=== PATIENT | male | born 1930 | race Caucasian/White ===

== ENCOUNTER 2016-06-24 13:09 | Emergency (ER) | payer OTHER, MEDICAID ==
[2016-06-24 13:15] VITALS: RESP 18
[2016-06-24] MEDS ORDERED: OXYCODONE/APAP 5/325 TAB PO ONE (14:40)
--- NOTE | 2016-06-24 14:40 | EDPHY ---
H & P Time Seen by Provider: 06/24/16 13:26 HPI/ROS: CHIEF COMPLAINT: Left knee pain HISTORY OF PRESENT ILLNESS: 85-year-old male in the emergency department via private vehicle with a friend. He has a history of chronic left knee pain for which he is being followed by Dr. Daniel Kaufman. On 06/17/2016 he sustained a mechanical fall and impacted his left knee. He had no complaints of immediate pain and was able to ambulate, go to brunch and walk the dog but notes that in the past approximately 24 hours soft tissue swelling and increased pain left knee. No instability. He has an appoint with primary care provider tomorrow an appointment with Dr. Daniel Kaufman on July 01. He lives in the [facility] and states that he does feel comfortable with his current living situation and does feel safe. PRIMARY CARE PROVIDER:Ashutosh REVIEW OF SYSTEMS: A ten point review of systems was performed and is negative with the exception of the items mentioned in the HPI PHYSICAL EXAM (Prior to examination, patient consented to physical exam, hands were washed and my usual and customary physical exam procedures followed) 1) GENERAL: Well-developed, well-nourished, alert and oriented. Appears to be in no acute distress. 2) HEAD: Normocephalic 3) HEENT: Pupils equal, round, reactive to light bilaterally. 4) LUNGS: Breathing comfortably. 5) MUSCULOSKELETAL: Exam of the left knee shows knee effusion. Normal color normal temperature. Tender to palpation. . Compartments are soft. 6) SKIN: intact 7) VASCULAR: DP,PT pulses and cap refill present and brisk distally DIFFERENTIAL DIAGNOSIS: in no particular order including but not limited to fracture, sprain, compartment syndrome, septic arthritis, DVT Xray of the left knee interpreted by myself: no definitive acute osseous abnormality MEDICAL DECISION MAKING Serial evaluations performed on patient. I discussed the limitations of x-ray in diagnosis of knee pain and injury. At this time I do not think that emergent MRI is currently indicated. However, I have recommended follow-up with Orthopedic surgery and provided this referral information. Informed the patient that outpatient MRI may be indicated. Doubt septic arthritis. Doubt compartment syndrome. Doubt DVT. Smoking Status: Never smoked Constitutional: Initial Vital Signs Temperature (C) 36.7 C 06/24/16 13:10 Heart Rate 83 06/24/16 13:10 Respiratory Rate 18 06/24/16 13:10 Blood Pressure 119/55 L 06/24/16 13:10 O2 Sat (%) 94 06/24/16 13:10 O2 Delivery Mode Room Air Allergies/Adverse Reactions: tramadol Allergy (Severe, Verified 06/24/16 13:17) altered LOC gentamicin [Gentamicin] Allergy (Intermediate, Verified 06/24/16 13:10) WELTS Home Medications: Medication Instructions Recorded Carbidopa/Levodopa [Carbidopa-Levo 1 each PO 06/24/16 25-100 mg Odt] Citalopram [CeleXA] 20 mg PO 06/24/16 Docusate Sodium [Colace] 100 mg PO BID #6 cap 06/24/16 Sulfamethox/Tmp 400/80 mg 1 each PO BID@1000,2000 06/24/16 [Sulfamethoxazole-Tmp SS] oxyCODONE/APAP 5/325 [Percocet 0.5 tab PO Q6 #10 tab 06/24/16 5/325] MDM/Departure - MDM Diagnostics: Xray of the left knee interpreted by radiologist shows no definitive acute osseous abnormality. Images reviewed by myself ED Course/Re-evaluation: Patient states that he is able tolerate Percocet without adverse effect. Doubt septic arthritis. I do not think that arthrocentesis currently indicated I do not think the benefits outweigh the risks. He has an appointment with his primary care provider tomorrow an appointment with Dr. Daniel Kaufman on July 01. Recommend he keep both these appointments. He is discharged with Percocet and my usual and customary opiate precautions and instructions. - Depart Disposition: Home, Routine, Self-Care Clinical Impression: Acute pain of left knee Condition: Good Instructions: Knee Sprain (ED) Additional Instructions: Return to the ER immediately if you experience discoloration, have worsening pain, numbness, tingling, or any other symptoms that concern you. If you received x-rays in the emergency department today, be advised, that ligamentous , tendon, muscular, and other non-bony injury cannot be fully ruled out. Try to keep your affected extremity elevated above the level of your chest, and keep cold packs on the affected area, for the next 48 hours. Prescriptions: Docusate Sodium [Colace] 100 mg PO BID #6 cap oxyCODONE/APAP 5/325 [Percocet 5/325] 0.5 tab PO Q6 #10 tab Referrals: Stan Boykin MD [Primary Care Provider] - 1 day without fail (Keep your appointment with Dr. Stan Boykin scheduled for tomorrow)
--- NOTE | 2016-06-24 14:51 | DX ---
Left knee, 5 views - June 24, 2016 at 1327 hours Indication: Pain. Comparison: April 28, 2013. Findings: Again present is severe joint space narrowing and chondrocalcinosis, consistent with sever e arthritic changes. There is some soft tissue swelling over the lateral femur. No definite fracture. 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 Critical results relayed by Dr. Coy Bowser to Jonathan Antonio PA-C, on June 24, 2016 at 1448 hours .
[2016-06-24 15:10] VITALS: BP 132/81; PULSE 78; TEMP 98.8; O2SAT 95
== END 2016-06-24 15:10 | disposition home or self-care (01) ==
DX: S89.92XA Unspecified injury of left lower leg, initial encounter (principal); W18.39XA Other fall on same level, initial encounter

== ENCOUNTER 2017-05-03 13:02 | Observation (INO) | payer MEDICAID, OTHER ==
[2017-05-03] MEDS ORDERED: LIDOCAINE 2% JELLY 20 ML (UROJECT) ONE (14:14)
--- NOTE | 2017-05-03 14:40 | EDPHY ---
H & P Smoking Status: Never smoked <Kayy Mejias S - Last Filed: 05/03/17 15:13> <KimberlyDonna M - Last Filed: 05/03/17 18:10> Time Seen by Provider: 05/03/17 14:11 HPI/ROS: CHIEF COMPLAINT: Unable to urinate HISTORY OF PRESENT ILLNESS: The patient is an 86-year-old male with a history of prostatic cancer, prostatectomy, and Parkinson's disease who presents to the emergency department urinary retention. Patient has been unable to urinate since last evening. Last week the patient had urinary retention ultimately had a straight catheter placed on and a large amount of urine was obtained. At that time he was started on Bactrim. He had been on Bactrim previously for 7 years but it had been recently discontinued. Patient states that he has suprapubic pressure. No pain. No nausea or vomiting. No fevers or chills. REVIEW OF SYSTEMS: My complete review of systems is negative except as mentioned in the HPI. ( Kayy Mejias) Past Medical/Surgical History: Includes Parkinson's disease, chronic UTI, prostate cancer, memory loss Past surgical history: Includes orthopedic surgery, prostatectomy Social history: Patient does not smoke or drink. 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 (Kayy Mejias) Physical Exam: 37.0, 141/85, 88, 16, 92% on room air GENERAL: No acute distress, alert. HEENT: Eyes normal to inspection, normal pharynx, no signs of dehydration. NECK: No thyromegaly, no lymphadenopathy, supple. RESPIRATORY: Clear to auscultation bilaterally, no rales, rhonchi or wheezing. CVS: Regular rate and rhythm, no rubs, murmurs, or gallops. ABDOMEN: Soft, nondistended, no organomegaly. Patient has a suprapubic palpable firmness. BACK: Normal to inspection, no CVA tenderness. SKIN: Normal color, no rash, warm, dry. No pallor. EXTREMITIES: No pedal edema, no calf tenderness, no joint swelling. NEURO/PSYCH: Alert and oriented, flat affect. Parkinson's like movement. ( Kayy Mejias) Constitutional: Initial Vital Signs Temperature (C) 37.0 C 05/03/17 13:08 Heart Rate 88 05/03/17 13:08 Respiratory Rate 16 05/03/17 13:08 Blood Pressure 141/85 H 05/03/17 13:08 O2 Sat (%) 92 05/03/17 13:08 O2 Delivery Mode Room Air Allergies/Adverse Reactions: tramadol Allergy (Severe, Verified 06/24/16 13:17) altered LOC gentamicin [Gentamicin] Allergy (Intermediate, Verified 06/24/16 13:10) WELTS ciprofloxacin [From Cipro] Allergy (Verified 05/03/17 13:05) Home Medications: Medication Instructions Recorded Carbidopa/Levodopa [Carbidopa-Levo 1 each PO 06/24/16 25-100 mg Odt] Citalopram [CeleXA] 20 mg PO 06/24/16 Docusate Sodium [Colace] 100 mg PO BID #6 cap 06/24/16 Sulfamethox/Tmp 400/80 mg 1 each PO BID@1000,2000 06/24/16 [Sulfamethoxazole-Tmp SS] Medical Decision Making <Kayy Mejias S - Last Filed: 05/03/17 15:13> - Diagnostics Imaging: Discussed imaging studies w/ weight caller Radiologist, I viewed and interpreted images myself <Donna Harris - Last Filed: 05/03/17 18:10> - Diagnostics Imaging Results: Imaging Impressions Abdomen/Pelvis CT 05/03/17 14:46 Impression: 12 x 6 mm proximal left ureteral calculus. Marked left renal atrophy , and left nephrolithiasis. Cystic change, right kidney. Results called to Dr. Jacobs for Dr. Harris at 3:45 PM. Attention: This CT examination is specifically designed to evaluate patients who are clinically suspected of having acute obstructive uropathy. This examination does not use radiographic contrast, and as such, provides only a limited evaluation of the abdomen, pelvis and retroperitoneum. If there is further clinical suspicion for pathological conditions other than obstructive uropathy, a complete CT evaluation of the abdomen and pelvis utilizing intravenous, oral, and rectal contrast should be considered. Testicular Ultrasound 05/03/17 15:54 Impression: 1. Age-related testicular atrophy, with no mass or torsion. 2. Partially-septated hydrocele noted along the lower portion of the left scrotal sac. Findings were discussed with Donna Harris MD at 16:48, on 05/03/2017. ED Course/Re-evaluation: In the emergency department I discussed possible etiologies with the patient and his medical [id number]. Answered all her questions. Laboratory studies and Stroud catheter was ordered. Procedure: Limited bedside ultrasound Indication: Urinary retention I performed a bedside ultrasound. I difficulty imaging a full bladder. He was not a typical appearance as expected with a significant amount of urine. A Stroud catheter was placed. A small amount of urine was obtained. Due to the abnormal ultrasound and small amount of urine on Stroud placement a CT was ordered. Patient was given fentanyl 25 mcg IV for pain. 1500: Patient is signed out at change of shift to Dr. Donna Harris. The patient is awaiting laboratory studies and CT imaging. (Kayy Mejias) Differential Diagnosis: My differential includes but is not limited to urinary retention, urinary tract infection, pyelonephritis, pelvic mass, bladder mass, malignancy, urethral stricture (Kayy Mejias) Other Provider: I assumed care of this patient at shift change. His caregiver describes the patient having a sudden increase in pain this morning. She also notes the patient has a history of kidney stones. He admits to having pain in the groin, penis, and testicles. On my exam, he has right testicular tenderness. 1545: Procedure: Limited bedside ultrasound Indication: Urinary retention I performed a bedside ultrasound after the stroud catheter was placed. I do not see a distended bladder. I had difficulty visualizing bladder. 1550: Abdominopelvic CT shows a 12 x 6 mm proximal left ureteral calculus with left renal atrophy, and left nephrolithiasis. 1550: Right testicular US has been ordered. 1650: Spoke with radiologist, he reports the testicular US shows no reason for the patients pain 1710: Reassessed patient, he is no longer in pain. However, he does note that he is still having some aches. I have discussed the laboratory results, specifically a positive urinary tract infection. I believe he should be placed on Keflex, not Bactrim for this UTI. I have also discussed the possibility of a hospital admission. At this time he would feel more comfortable with a hospital admission instead of being discharged. 1725: Consulted with Dr. Vasquez, his PCP, and discussed his current symptoms as well as his laboratory and imaging findings. 1742: Consulted with Dr. Dennis, urologist, regarding the patients symptoms and findings today. He does not believe the patient needs to be admitted. 1748: Reassessed patient and discussed my conversations with Dr. Vasquez and Dr. Dennis. He is comfortable with being discharged home. Return precautions provided. (Donna Harris) - Data Points Laboratory Results: Laboratory Results 05/03/17 15:05 05/03/17 15:05 05/03/17 05/03/17 05/03/17 15:05 15:05 15:05 WBC 7.01 10^3/uL 10^3/uL (3.80-9.50) RBC 3.73 10^6/uL L 10^6/uL (4.40-6.38) Hgb 11.4 g/dL L g/dL (13.7-17.5) Hct 33.4 % L % (40.0-51.0) MCV 89.5 fL fL (81.5-99.8) MCH 30.6 pg pg (27.9-34.1) MCHC 34.1 g/dL g/dL (32.4-36.7) RDW 13.0 % % (11.5-15.2) Plt Count 190 10^3/uL 10^3/uL (150-400) MPV 10.1 fL fL (8.7-11.7) Neut % (Auto) 76.1 % H % (39.3-74.2) Lymph % (Auto) 13.6 % L % (15.0-45.0) [place] % (Auto) 8.6 % % (4.5-13.0) Eos % (Auto) 1.0 % % (0.6-7.6) Baso % (Auto) 0.4 % % (0.3-1.7) Nucleat RBC Rel Count 0.0 % % (0.0-0.2) Absolute Neuts (auto) 5.34 10^3/uL 10^3/uL (1.70-6.50) Absolute Lymphs (auto) 0.95 10^3/uL L 10^3/uL (1.00-3.00) Absolute Monos (auto) 0.60 10^3/uL 10^3/uL (0.30-0.80) Absolute Eos (auto) 0.07 10^3/uL 10^3/uL (0.03-0.40) Absolute Basos (auto) 0.03 10^3/uL 10^3/uL (0.02-0.10) Absolute Nucleated RBC 0.00 10^3/uL 10^3/uL (0-0.01) Immature Gran % 0.3 % % (0.0-1.1) Immature Gran # 0.02 10^3/uL 10^3/uL (0.00-0.10) Sodium 136 mEq/L mEq/L (134-144) Potassium 4.1 mEq/L mEq/L (3.5-5.2) Chloride 104 mEq/L mEq/L (97-110) Carbon Dioxide 21 mEq/l L mEq/l (22-31) Anion Gap 11 mEq/L mEq/L (8-16) BUN 24 mg/dL H mg/dL (7-23) Creatinine 1.3 mg/dL mg/dL (0.7-1.3) Estimated GFR 52 Glucose 83 mg/dL mg/dL (70-100) Calcium 8.7 mg/dL mg/dL (8.5-10.4) Urine Color YELLOW Urine Appearance MODERATELY TURBID Urine pH 5.0 (5.0-7.5) Ur Specific [place] 1.026 (1.002-1.030) Urine Protein 2+ H (NEGATIVE) Urine Ketones TRACE H (NEGATIVE) Urine Blood NEGATIVE (NEGATIVE) Urine Nitrate NEGATIVE (NEGATIVE) Urine Bilirubin NEGATIVE (NEGATIVE) Urine Urobilinogen NEGATIVE EU EU (0.2-1.0) Ur Leukocyte Esterase 3+ H (NEGATIVE) Urine RBC 25-50 /hpf H /hpf (0-3) Urine WBC 50-182 /hpf H /hpf (0-3) Ur Epithelial Cells TRACE /lpf /lpf (NONE-1+) Amorphous Sediment PRESENT /hpf /hpf (NONE-1+) Urine Bacteria 1+ /hpf H /hpf (NONE SEEN) Urine Mucus 2+ /lpf H /lpf (NONE-1+) Urine Glucose NEGATIVE (NEGATIVE) Medications Given: Discontinued Medications Fentanyl (Sublimaze) 25 mcg IVP EDNOW ONE Stop: 05/03/17 15:14 Last Admin: 05/03/17 15:16 Dose: 25 mcg Fentanyl (Sublimaze) 25 mcg IVP EDNOW ONE Stop: 05/03/17 15:14 Last Admin: 05/03/17 15:17 Dose: Not Given Departure <Kayy Mejias - Last Filed: 05/03/17 15:13> <Donna Harris - Last Filed: 05/03/17 18:10> - Departure Disposition: Home, Routine, Self-Care Clinical Impression: Urinary retention, Pelvic pain in male Groin pain Qualifiers: Laterality: right Qualified Code(s): R10.31 - Right lower quadrant pain Urinary tract infection Qualifiers: Urinary tract infection type: site unspecified Hematuria presence: without hematuria Qualified Code(s): N39.0 - Urinary tract infection, site not specified Condition: Good Instructions: Epididymitis (ED), Urinary Tract Infection in Men (ED), Testicle Pain (ED), Groin Pain (ED) Additional Instructions: Take Keflex as instructed for your UTI; 500mg by mouth 3 times a day. Follow up with Dr. Vogel tomorrow. Please keep the Stroud in place. We will ask you to monitor how much urine you have put out. Drink plenty of fluid. Okay to take Tylenol 650-1000 mg every 4-6 hours as needed for pain. Return to the Emergency Department for fever, worsening pain, flank pain, vomiting, or other concerns. Referrals: SHAYE VASQUEZ [Other] - As per Instructions Report Scribed for: Donna Harris Report Scribed by: Joleen Sepulveda Date of Report: 05/03/17 Time of Report: 15:53 <Donna Harris - Last Filed: 05/03/17 18:10>
[2017-05-03] MEDS ORDERED: fentaNYL 100 MCG/2 ML INJ IVP ONE ×2 (15:13)
[2017-05-03 15:14] LABS: % IMMATURE GRANULYOCYTES 0.3 % (0.0-1.1); ABSOLUTE IMMATURE GRANULOCYTES 0.02 10^3/uL (0.00-0.10); ADD DIFF? NO; ADD MORPH? NO; ADD SCAN? NO; ATYPICAL LYMPHOCYTE FLAG 20 (0-99); FRAGMENT RBC FLAG 0 (0-99); HEMATOCRIT 33.4 % (40.0-51.0); HEMOGLOBIN 11.4 g/dL (13.7-17.5); LEFT SHIFT FLG 0 (0-99); LIPEMIA HEMOLYSIS FLAG 90 (0-99); MEAN CELL HEMOGLOBIN 30.6 pg (27.9-34.1); MEAN CELL HEMOGLOBIN CONCENTR. 34.1 g/dL (32.4-36.7); MEAN CELL VOLUME 89.5 fL (81.5-99.8); MEAN PLATELET VOLUME 10.1 fL (8.7-11.7); PLATELET CLUMPS FLAG 30 (0-99); PLATELET COUNT 190 10^3/uL (150-400); RED BLOOD CELL COUNT 3.73 10^6/uL (4.40-6.38)
[2017-05-03 15:16] LABS: COLOR YELLOW; LEUKOCYTE ESTERASE,URINE 3+ (NEGATIVE); NITRITE,URINE NEGATIVE (NEGATIVE)
[2017-05-03 15:21] LABS: AMORPHOUS PRESENT /hpf (NONE-1+); MUCUS 2+ /lpf (NONE-1+); RBC,URINE 25-50 /hpf (0-3); WBC,URINE 50-182 /hpf (0-3)
[2017-05-03 15:31] LABS: BACTERIA 1+ /hpf (NONE SEEN)
[2017-05-03 15:33] LABS: ANION GAP 11 mEq/L (8-16); CALCIUM 8.7 mg/dL (8.5-10.4); CARBON DIOXIDE 21 mEq/l (22-31); CHLORIDE 104 mEq/L (97-110); CREATININE 1.3 mg/dL (0.7-1.3); GLOMERULAR FILTRATION RATE 52; GLUCOSE 83 mg/dL (70-100); POTASSIUM 4.1 mEq/L (3.5-5.2); SODIUM 136 mEq/L (134-144)
[2017-05-03] MEDS ORDERED: CEPHALEXIN 500 MG CAP PO ONE (17:56)
[2017-05-03] MEDS ORDERED: HYDROCOD/APAP 5/325 PREPACK#6 BTL TAKEHOME ONE (18:09)
[2017-05-03] MEDS ORDERED: CEPHALEXIN 500MG PREPACK#4 BTL TAKEHOME ONE ×2 (18:09→18:23)
[2017-05-03] MEDS ORDERED: HYDROCODONE/APAP 5/325 TAB PO ONE (18:21)
[2017-05-03] MEDS ORDERED: PHENAZOPYRIDINE HCL 200 MG TAB PO ONE (18:53)
[2017-05-03] MEDS ORDERED: ACETAMINOPHEN 325 MG TAB PO PRN (20:36)
[2017-05-03] MEDS ORDERED: HYDROmorphone HCL/NS/PF 0.4 MG/2 ML SYR IVP PRN (20:36)
[2017-05-03] MEDS ORDERED: ONDANSETRON DISINTEGRATING 4 MG TAB PO PRN (20:36)
[2017-05-03] MEDS ORDERED: ONDANSETRON 4 MG/2 ML VIAL IVP PRN (20:36)
[2017-05-03] MEDS ORDERED: PROMETHAZINE HCL 25 MG/ML INJ IVP PRN (20:36)
[2017-05-03] MEDS ORDERED: ZOLPIDEM TARTRATE 5 MG TAB PO PRN (20:39)
[2017-05-03] MEDS ORDERED: BISACODYL 5 MG EC TAB PO SCH (20:45)
[2017-05-03] MEDS ORDERED: ASPIRIN EC 325 MG TAB PO SCH (21:00)
[2017-05-03] MEDS: NS 1,000 ML IV SCH (21:10)
[2017-05-03] MEDS: oxyCODONE IR 5 MG TAB PO PRN (21:46)
[2017-05-03] MEDS: TAMSULOSIN HCL 0.4 MG CAP PO SCH (21:46)
--- NOTE | 2017-05-03 21:58 | GHP ---
[f rep st] HISTORY AND PHYSICAL DATE OF ADMISSION: 05/03/2017 CHIEF COMPLAINT: Abdominal pain. HISTORY: This is an 86-year-old man with a past medical history that includes Parkinson's, prostate cancer, and recurrent UTIs who presents with several days of lower abdominal and groin pain with associated spasm as well as intermittent urinary retention over the last week. The patient did require straight catheterization at his home care facility x1 this week. He otherwise notes that it does not seem as if he is making sufficient urine for the last several days. His caregiver believes that he has only made 100 mL of urine for the last 2 days despite drinking a normal amount of water. He has noted that his urine is somewhat darker than usual. He has not had fevers or chills that he is aware of. He does note bouts of quite severe pain that radiates into his groin coming and going and up to a 9/10 in severity when the spasm occurs. PAST MEDICAL HISTORY: 1. Prostate cancer. 2. Recurrent UTIs with a history of ESBL. 3. Parkinson disease. 4. Kidney and bladder stones. 5. Memory loss. PAST SURGICAL HISTORY: 1. Lithotripsy. 2. Left shoulder surgery. 3. Prostatectomy. 4. Multiple knee surgeries. 5. Left hip surgery and total hip arthroplasty. FAMILY HISTORY: Unknown as patient is adopted. SOCIAL HISTORY: The patient is . 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 He states he is quite active. He is usually still doing a lot of gardening. He is a never smoker. Uses alcohol occasionally. REVIEW OF SYSTEMS: 10-point review of systems obtained, negative except as per HPI. HOME MEDICATIONS: 1. Bisacodyl. 2. Sertraline. 3. Sinemet. 4. Aspirin. ALLERGIES: Multiple and include ciprofloxacin, gabapentin, and tramadol. PHYSICAL EXAMINATION: VITAL SIGNS: BP 126/78, heart rate 76, respiratory rate 20, O2 sats 92% on room air. Temperature is 36.5. GENERAL APPEARANCE: This is a chronically ill-appearing man. He is in moderate distress. He is diaphoretic. EYES: Anicteric. HENT: Oropharynx clear. Mucous membranes are dry. CARDIOVASCULAR: Regular rate and rhythm, no MRG, no edema. PULMONARY: CTA bilaterally to anterior exam. ABDOMEN: Soft. Bowel sounds are present. No rebound or guarding. EXTREMITIES: No clubbing, cyanosis, or edema. SKIN: Warm, dry, well perfused. NEURO/PSYCH: Oriented and appropriate. Patient does have a coarse tremor present. CLINICAL DATA: Labs reviewed. White blood cell count is 7.0, hematocrit 33.4, platelets of 190. Chemistry is remarkable for a BUN of 24 and a creatinine of 1.3. Urinalysis shows 25-50 red blood cells, 50-180 white blood cells, 3+ leukocyte esterase. Imaging personally reviewed and interpreted. Abdominal CT showing a 12 x 6 mm proximal left ureteral stone as well as some left nephrolithiasis that are non obstructing. There is marked atrophy of the left kidney with significant parenchymal loss. Testicular ultrasound shows age-related testicular atrophy and a partially septated hydrocele. ASSESSMENT AND PLAN: This is an 86-year-old man with a past medical history of prostate cancer, Parkinson disease, and recurrent urinary tract infections, presenting with ureterolithiasis and abdominal pain. 1. Ureterolithiasis. Fairly large proximal left ureteral stone. He is having fairly significant symptoms. Seems as if his care plan has been somewhat questionable as patient is enrolled in [facility] and per his primary care physician, plan would be for only overnight observation and then to have him follow up with Urology as an outpatient as soon as possible if this can be arranged. They were hoping not to have him admitted at all initially. Will hold off on a urology consult for the time being, though if pain is not improved , he will require this tomorrow. Will start ceftriaxone for associated pyuria. Dr. Dennis was aware the patient was here, but did feel that he could be discharged to outpatient followup. Flomax was initiated as well. 2. Urinary retention. Thomas catheter now in place. The patient has had only somewhat limited urinary output. We will continue to monitor I's and O's. We will provide intravenous fluids overnight. 3. Groin pain and spasm in the setting of ureteral stone and likely related to the same. Provide IV and p.o. opiates as needed. He has been given Pyridium x1 without any real benefit. 4. Parkinson's. This has been relatively stable. Will continue his home regimen. 5. History of prostate cancer. Will continue his outpatient regimen. 6. Disposition: Observation status. Suspect patient will need less than 48 hours stay for evaluation and management of above. 7. DNR--comfort care only 8. The patient is new to my care. Care plan reviewed with emergency room physician and patient's PCP including plans for overnight observation. Further history obtained from patient's caregiver present at bedside. /[id number]/MODL MTDD
[2017-05-03] MEDS: CARBIDOPA/LEVODOPA 25 MG/100 MG TAB PO SCH (21:59)
[2017-05-04] MEDS: oxyCODONE IR 5 MG TAB PO PRN (00:19)
[2017-05-04 05:56] LABS: % IMMATURE GRANULYOCYTES 0.3 % (0.0-1.1); ABSOLUTE IMMATURE GRANULOCYTES 0.02 10^3/uL (0.00-0.10); ADD DIFF? NO; ADD MORPH? NO; ADD SCAN? NO; ATYPICAL LYMPHOCYTE FLAG 10 (0-99); FRAGMENT RBC FLAG 0 (0-99); HEMATOCRIT 33.7 % (40.0-51.0); LEFT SHIFT FLG 0 (0-99); LIPEMIA HEMOLYSIS FLAG 80 (0-99); MEAN CELL HEMOGLOBIN 29.9 pg (27.9-34.1); MEAN CELL HEMOGLOBIN CONCENTR. 32.6 g/dL (32.4-36.7); MEAN CELL VOLUME 91.6 fL (81.5-99.8); MEAN PLATELET VOLUME 10.4 fL (8.7-11.7); PLATELET CLUMPS FLAG 0 (0-99); PLATELET COUNT 182 10^3/uL (150-400); RED BLOOD CELL COUNT 3.68 10^6/uL (4.40-6.38); RED CELL DISTRIBUTION WIDTH 12.9 % (11.5-15.2)
[2017-05-04 06:10] LABS: ANION GAP 10 mEq/L (8-16); CALCIUM 8.4 mg/dL (8.5-10.4); CARBON DIOXIDE 22 mEq/l (22-31); CHLORIDE 106 mEq/L (97-110); CREATININE 1.1 mg/dL (0.7-1.3); GLOMERULAR FILTRATION RATE > 60; GLUCOSE 83 mg/dL (70-100); POTASSIUM 4.6 mEq/L (3.5-5.2); SODIUM 138 mEq/L (134-144)
[2017-05-04 07:59] VITALS: O2SAT 95
[2017-05-04] MEDS: NS 1,000 ML IV SCH (08:06)
[2017-05-04] MEDS: PHENAZOPYRIDINE HCL 200 MG TAB PO SCH ×2 (08:16→13:24)
[2017-05-04] MEDS: TAMSULOSIN HCL 0.4 MG CAP PO SCH (08:17)
[2017-05-04] MEDS: CARBIDOPA/LEVODOPA 25 MG/100 MG TAB PO SCH (08:18)
--- NOTE | 2017-05-04 08:41 | HOSPPROG ---
Hospitalist Progress Note Assessment/Plan: Patient is an 86-year-old male with a history of Parkinson's, prostate cancer and recurrent UTIs. He presented to the emergency room with abdominal pain. A CT scan showed a 12 x 6 mm proximal left ureteral stone as well as some left nephrolithiasis that are nonobstructing today is my 1st encounter with the patient. Chart reviewed. * ureteral stone/large one on left side pain is on the right side reviewed his care with Dr Dennis/stone has been there for a long time patient sees Dr Flowers in the OP setting Dr Dennis will see if Dr Flowers can come by to see * urinary retention stroud placed in will remove and see if he can void *UTI started on Ceftriaxone spoke with Dr Luli Miner/ she called a script of Bactrim into [facility] * groin pain no complaints * Parkinson's doing well w home meds * history of prostate cancer further f/u with Dr Flowers *Plan: after he voids, dc home/ further f/u w urology and PCP Subjective: Nils has no complaints, feeling well, is hungry. Objective: Vital Signs Temp Pulse Resp BP Pulse Ox 36.8 C 69 16 126/71 H 95 05/04/17 07:58 05/04/17 07:58 05/04/17 07:58 05/04/17 07:58 05/04/17 07:58 Laboratory Results 05/04/17 05:23 05/04/17 05:23 05/03/17 05/04/17 05/05/17 05:59 05:59 05:59 Intake Total 300 950 Output Total 700 Balance -400 950 - Physical Exam Constitutional: no apparent distress, not in pain, chronically ill appearing Eyes: PERRL Ears, Nose, Mouth, Throat: hearing normal Cardiovascular: regular rate and rhythym Respiratory: no respiratory distress Gastrointestinal: normoactive bowel sounds Genitourinary: stroud in urethra Skin: warm Musculoskeletal: generalized weakness Neurologic: AAOx3 Psychiatric: interacting appropriately ICD10 Worksheet Patient Problems: Problems Problem Status Onset Groin pain Acute Pelvic pain in male Acute Urinary retention Acute Urinary tract infection Acute Sepsis - Septicemia Acute Syncope Acute Thrombocytopenic disorder Acute UTI (lower urinary tract infection) Acute
[2017-05-04] MEDS ORDERED: ENOXAPARIN 40 MG/0.4 ML SYR SC SCH (09:00)
[2017-05-04] MEDS ORDERED: SERTRALINE HCL 25 MG TAB PO SCH (09:00)
[2017-05-04 11:48] VITALS: BP 113/58; PULSE 85; RESP 17; TEMP 97.5
--- NOTE | 2017-05-04 14:36 | ASMTCASEMG ---
Case Management Evaluation Functional: Able to Answers: Yes return Home with Prior Level of Function/Care Discharge Plan Comments Coordination Status Comments Notes: Patient discharging home once it has been determined that he can void when the catheter is removed. C/M will follow. Date Signed: 05/04/2017 02:35 PM Electronically Signed By:BROCK Mills
--- NOTE | 2017-05-04 15:33 | ASMTCMCOM ---
CM Note CM Note Notes: Pt discharging home with no apparent case management needs. Date Signed: 05/04/2017 03:32 PM Electronically Signed By:BROCK Mills
--- NOTE | 2017-05-05 01:23 | GCON ---
[f rep st] CONSULTATION DATE OF CONSULTATION: 05/04/2017 CHIEF COMPLAINT: Pelvic pain. HISTORY OF PRESENT ILLNESS: This is an 86-year-old gentleman who years ago was known to me because o f his prostate cancer. He had had radiation, brachytherapy, and surgery, and had had biochemical rec urrence. I have not seen him since 06/24/2010. Since he has seen Dr. Monsivais, Dr. Emanuel, and other d octors he does not remember the name of. He says he has been on Lupron and his PSAs have been quite low and it sounds as though he is admitted because of pelvic pain which he has had for years and he h as also developed Parkinson's and has short-term memory loss. He has had alleged recurrent UTIs, but I do not have a documented history of UTIs noted. In 09/2013, he had 3 colony types of bacteria in the urine and they did not identify the samples. Then, he had 3 colony types on 04/2017, acinetobacter, enterococcus. He had a Klebsiella UTI in 2012 and Enterococcus faecalis urine infecti on in August 2009. His PSA as of 04/09/2017, was less than 0.64. The prior PSA was done on 7, and that was less than 0.06. I do not have any other genitourinary labs on him other than those m entioned. He is not a great historian, but he says that he has had some awful pain in the lower pelv is. I tried to catheterize him on a couple of occasions and he could not tolerate it because of the pain. He has had significant outlet issues and bladder problems for years. He has been totally inco ntinent and wearing pads for at least 3 years. A CAT scan was performed and I reviewed. The CAT sca n showed a left proximal ureteral calculus and somewhat of an atrophic kidney and right kidney had a renal cyst and maybe a bit of dilated ureter. The bladder was not distended but could not visualize well because of the hip prosthesis that he has had placed. At the present time, the patient has no d esire to have any genitourinary care above and beyond what he has had because he feels so good and hi s PSA is low and he feels he is in prostatic cancer remission. The stone is asymptomatic and he is a n 86-year-old gentleman who has some memory loss, Parkinson's, significant cardiovascular disease wit h coronary artery calcifications on CAT scan. An asymptomatic option would be to treat the stone wit h ureteroscopy, lithotripsy, or percutaneous nephrostolithotomy and I think in light of his age and o verall general health and being asymptomatic, it may be best to leave it alone. The urinary retentio n, he is not in retention. He has total urinary incontinence and he desires not having a catheter pu t in and he desires no further genitourinary assessment or evaluation. The UTI, he was started on an tibiotics. Question, he has chronic bacteriuria to some element and probably would not treat him at the present time. The Parkinson's is doing well and we have asked that he have followup with me as a n outpatient if he desires care by me or to follow up with Dr. Emanuel, or a urologist of his choice. PHYSICAL EXAMINATION: VITAL SIGNS: Blood pressure is 113/58, heart rate is 85, respirations 17, O2 saturation on room air is 95%. GENERAL: He is up in a chair, eating well, pain-free. NECK: Supple. CHEST: Unlabored breathing. ABDOMEN: Soft with no rebound, guarding, or organomegaly. LOWER EXT REMITIES: Without significant edema. LABORATORY DATA: I reviewed his laboratory values and he has a creatinine of 1.1 and a serum calcium of 8.4. His CBC shows a white blood count of 6.73. He is a bit anemic with a hematocrit of 33.7, a nd platelet count of 182,000. Urinalysis showed white blood cells, red blood cells, and it was nitri te negative. IMPRESSION: At the present time, prostate cancer is stable should continue his androgen blockade the rapy. His CT scan reveals the findings as noted above with him being asymptomatic, I would probably recommend no intervention because of the potential risks associated with general anesthesia and attem pted treatment of a patient who has some short-term memory loss, Parkinson's, and significant vascula r disease. His urine looks like it does not have bacteriuria and it may be reasonable to withhold tr eatment until he becomes somewhat symptomatic. Attempted catheterization, because of his pain, disco mfort, prior history of significant stricture disease and prior radiation and having a bladder that i s really not very functional, would leave the catheter out unless he has concerns later on. I have l eft a message with Elaina Reyes's office for the hospitalists to call me back and discuss this pat ient with her, and she will most likely follow up after she gets the message from the phone service. There was a total of 45 minutes spent in discussing, examining the patient, reviewing images and laurent t work. /[id number]/MODL
--- NOTE | 2017-05-05 02:34 | GDS ---
[f rep st] DISCHARGE SUMMARY DISCHARGE DIAGNOSES: 1. Ureteral stone on left side. 2. Urinary retention. 3. Urinary tract infection. 4. Groin pain. 5. Parkinson. 6. Prostate cancer. HISTORY: Briefly, the patient is an 86-year-old gentleman with a history of Parkinson disease, prost ate cancer, recurrent UTIs. He presented to the emergency with abdominal pain. A CT scan showed a 1 2 x 6 mm proximal left ureteral stone, as well as some left nephrolithiasis that are nonobstructing. He was seen in the ER and admitted for further evaluation. HOSPITAL COURSE: 1. Ureteral stone. This was a large one noted on the left side. His pain is actually on the right side. I reviewed his care with Dr. Dennis who thought the stone had been there for a period of time . Dr. Flowers came by to see the patient. The patient will follow up with Dr. Flowers in the outpatient setting. 2. Urinary retention. The Thomas was removed. He is eating and drinking and voiding without difficu lty. 3. Urinary tract infection. He was started on ceftriaxone. Dr. Luli Vogel called in a prescript ion of Bactrim for him. 4. Groin pain. No complaints. 5. Parkinson. Resumed his home medications. 6. History of prostate cancer. Further follow up with Dr. Flowers. DISCHARGE CONDITION: Stable. Blood pressure is 113/58, heart rate is 85, respiratory rate is 18, O2 sats on room air 95%, temperature is 36.4 Celsius. MEDICATIONS AT DISCHARGE: 1. Please see the EMR. Multiple medications were called in to [facility] by his primary care provid er. DISCHARGE INSTRUCTIONS: 1. To further follow up with Dr. Vogel tomorrow at the [facility]. 2. To continue his antibiotics as prescribed. 3. Pain medications p.r.n. have been ordered. Please note that his urine culture is currently pending. /[id number]/MODL
== END 2017-05-04 15:38 | disposition home or self-care (01) ==
LOC: F1N 20:23
PROVIDERS: ADMIT Internal Medicine; ATTEND Internal Medicine
DX: N20.2 Calculus of kidney with calculus of ureter (principal); R33.9 Retention of urine, unspecified; N39.0 Urinary tract infection, site not specified; G20 Parkinson's disease; C61 Malignant neoplasm of prostate
CPT/HCPCS: 74176; 76870; G0378; 96374; J0696; J1170; J1650; J2550; J3010

== ENCOUNTER 2017-05-29 16:39 | Emergency (ER) | payer OTHER ==
[2017-05-29 17:15] LABS: % IMMATURE GRANULYOCYTES 0.3 % (0.0-1.1); ABSOLUTE IMMATURE GRANULOCYTES 0.02 10^3/uL (0.00-0.10); ADD DIFF? NO; ADD MORPH? NO; ADD SCAN? NO; ATYPICAL LYMPHOCYTE FLAG 10 (0-99); FRAGMENT RBC FLAG 0 (0-99); HEMATOCRIT 35.1 % (40.0-51.0); HEMOGLOBIN 11.6 g/dL (13.7-17.5); LEFT SHIFT FLG 0 (0-99); LIPEMIA HEMOLYSIS FLAG 80 (0-99); MEAN CELL HEMOGLOBIN 30.7 pg (27.9-34.1); MEAN CELL VOLUME 92.9 fL (81.5-99.8); MEAN PLATELET VOLUME 10.8 fL (8.7-11.7); PLATELET CLUMPS FLAG 10 (0-99); PLATELET COUNT 162 10^3/uL (150-400); RED BLOOD CELL COUNT 3.78 10^6/uL (4.40-6.38); RED CELL DISTRIBUTION WIDTH 14.4 % (11.5-15.2)
[2017-05-29 17:22] LABS: ANION GAP 11 mEq/L (8-16); CARBON DIOXIDE 25 mEq/l (22-31); CHLORIDE 105 mEq/L (97-110); CREATININE 1.1 mg/dL (0.7-1.3); GLOMERULAR FILTRATION RATE > 60; GLUCOSE 76 mg/dL (70-100); POTASSIUM 4.4 mEq/L (3.5-5.2); SODIUM 141 mEq/L (134-144)
--- NOTE | 2017-05-29 17:33 | EDPHY ---
H & P Time Seen by Provider: 05/29/17 17:03 HPI/ROS: CHIEF COMPLAINT: Right-sided chest pain HISTORY OF PRESENT ILLNESS: This patient is an 86 y/o male with history of Parkinson's disease and prostate cancer arriving via EMS complaining of right-sided chest pain onset early this morning. The pain is "like a hot iron" and spasms under his ribs on the right. At onset, the discomfort felt like a pulled muscle. While riding in the car later in the day, his pain became severe and he called EMS. The pain has not relieved, and is most intense when he tries to breathe. It does not radiate. He is not feeling short of breath. No recent illness, cough, fever. He had not taken any pain medications. No history of heart problems or lung problems. No pneumonia or history of clotting disorder. REVIEW OF SYSTEMS: A 10 point review of systems was performed and is negative with the exception of the elements mentioned in the history of present illness. Past Medical/Surgical History: 1. Parkinson's disease 2. Chronic UTIs 3. Prostate cancer s/p prostatectomy 4. Short term memory loss 5. Essential tremor 6. Chronic left knee pain 7. Left hip fracture repair 8. Essential tremor Past medical records reviewed including recent admission for kidney stone . Social History: Nonsmoker. Lives in [place]. Smoking Status: Never smoked Physical Exam: General Appearance: Alert, in pain with changes in position. Eyes: Pupils equal and round, no conjunctival pallor or injection ENT, Mouth: Mucous membranes moist Neck: Normal inspection Respiratory: Tenderness over right lateral chest wall and axillary line. Rales at bases bilaterally. Cardiovascular: Regular rate and rhythm Gastrointestinal: Abdomen is soft and non- tender Neurological: A&O, nonfocal, normal gait Skin: Warm and dry, no rash Extremities: Nontender, no pedal edema Psychiatric: Mood and affect normal Constitutional: Initial Vital Signs Temperature (C) 36.6 C 05/29/17 16:30 Heart Rate 87 05/29/17 16:30 Respiratory Rate 18 05/29/17 16:30 Blood Pressure 155/90 H 05/29/17 16:30 O2 Sat (%) 92 05/29/17 16:30 O2 Delivery Mode Room Air Allergies/Adverse Reactions: tramadol Allergy (Severe, Verified 06/24/16 13:17) altered LOC gentamicin [Gentamicin] Allergy (Intermediate, Verified 06/24/16 13:10) WELTS ciprofloxacin [From Cipro] Allergy (Verified 05/03/17 13:05) gabapentin Allergy (Verified 05/03/17 19:17) benzodiazipines Allergy (Uncoded 05/03/17 19:17) Home Medications: Medication Instructions Recorded ASPIRIN [ECOTRIN] 500 mg PO HS 05/03/17 Bisacodyl [Bisacodyl (*)] 5 mg PO Q48H 05/03/17 Carbidopa/Levodopa 25/100Mg 3 tab PO TID 05/03/17 [Sinemet 25/100 MG (*)] Sertraline HCl [Zoloft 25mg (*)] 25 mg PO DAILY 05/03/17 Medical Decision Making - Diagnostics EKG Interpretation: EKG interpreted by me reveals normal sinus rhythm, rate 65, no ST/T changes. Interpretation: normal EKG Imaging Results: Imaging Impressions Chest X-Ray 05/29/17 17:04 Impression: Negative chest. Chest/Thorax CTA 05/29/17 17:34 Impression: 1. No visible pulmonary embolus 2. Three-vessel coronary artery atherosclerosis. 3. Mildly prominent mediastinal lymph nodes, which could be reactive, but are nonspecific. Recommend follow-up CT in 3-6 months. 4. Mild interlobular septal thickening, which could be related to early interstitial lung disease. 5. Coronary artery atherosclerosis. 6. Additional findings as above. Findings discussed with Dr. Hannah Jauregui on 05/29/2017 at 18:48. Imaging: Discussed imaging studies w/ scalloper Radiologist ED Course/Re-evaluation: 86 y/o male with history of Parkinson's presents with right-sided chest pain onset this morning. Exam reveals tenderness over right lateral chest wall and axillary line. Rales present at lung bases bilaterally. He was recently admitted 05/03/17 for kidney stone. IV established. Plan for labs including CBC , chemistries, BNP, Troponin. Plan for CT chest given recent admission and severe right-sided chest pain. EKG reveals no evidence of ischemia or dysrhythmia. 18:[address] Waters, radiologist. CT negative for acute processes. 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 The patient is quite hungry and would like to be discharged so he can have dinner. This is in a concern. Tylenol 650 mg orally and Toradol 15 mg IV given prior to discharge. Plan to d/c home in good condition. Follow up and return precautions discussed. He is comfortable with this plan. Differential Diagnosis: Differential diagnosis includes though it is not limited to pneumonia, pneumothorax, pulmonary embolism, aortic dissection, pericarditis, acute coronary syndrome. - Data Points Laboratory Results: Laboratory Results 05/29/17 16:47 05/29/17 16:47 05/29/17 05/29/17 16:47 16:47 WBC 6.76 10^3/uL 10^3/uL (3.80-9.50) RBC 3.78 10^6/uL L 10^6/uL (4.40-6.38) Hgb 11.6 g/dL L g/dL (13.7-17.5) Hct 35.1 % L % (40.0-51.0) MCV 92.9 fL fL (81.5-99.8) MCH 30.7 pg pg (27.9-34.1) MCHC 33.0 g/dL g/dL (32.4-36.7) RDW 14.4 % % (11.5-15.2) Plt Count 162 10^3/uL 10^3/uL (150-400) MPV 10.8 fL fL (8.7-11.7) Neut % (Auto) 77.8 % H % (39.3-74.2) Lymph % (Auto) 10.5 % L % (15.0-45.0) [place] % (Auto) 9.2 % % (4.5-13.0) Eos % (Auto) 1.6 % % (0.6-7.6) Baso % (Auto) 0.6 % % (0.3-1.7) Nucleat RBC Rel Count 0.0 % % (0.0-0.2) Absolute Neuts (auto) 5.26 10^3/uL 10^3/uL (1.70-6.50) Absolute Lymphs (auto) 0.71 10^3/uL L 10^3/uL (1.00-3.00) Absolute Monos (auto) 0.62 10^3/uL 10^3/uL (0.30-0.80) Absolute Eos (auto) 0.11 10^3/uL 10^3/uL (0.03-0.40) Absolute Basos (auto) 0.04 10^3/uL 10^3/uL (0.02-0.10) Absolute Nucleated RBC 0.00 10^3/uL 10^3/uL (0-0.01) Immature Gran % 0.3 % % (0.0-1.1) Immature Gran # 0.02 10^3/uL 10^3/uL (0.00-0.10) Sodium 141 mEq/L mEq/L (134-144) Potassium 4.4 mEq/L mEq/L (3.5-5.2) Chloride 105 mEq/L mEq/L (97-110) Carbon Dioxide 25 mEq/l mEq/l (22-31) Anion Gap 11 mEq/L mEq/L (8-16) BUN 27 mg/dL H mg/dL (7-23) Creatinine 1.1 mg/dL mg/dL (0.7-1.3) Estimated GFR > 60 Glucose 76 mg/dL mg/dL (70-100) Calcium 9.0 mg/dL mg/dL (8.5-10.4) Troponin I < 0.012 ng/mL ng/mL (0.000-0.034) NT-Pro-B Natriuret Pep 929 pg/mL H pg/mL (0-450) Medications Given: Discontinued Medications Acetaminophen (Tylenol) 650 mg PO EDNOW ONE Stop: 05/29/17 18:48 Last Admin: 05/29/17 19:13 Dose: 650 mg Ketorolac Tromethamine (Toradol) 15 mg IVP EDNOW ONE Stop: 05/29/17 18:50 Last Admin: 05/29/17 19:12 Dose: 15 mg Ondansetron HCl (Zofran) 4 mg IVP EDNOW ONE Stop: 05/29/17 17:54 Last Admin: 05/29/17 19:13 Dose: 4 mg Departure - Departure Disposition: Home, Routine, Self-Care Clinical Impression: Chest wall pain Condition: Good Instructions: Chest Wall Pain (ED) Additional Instructions: 1. Follow up with your primary care provider. 2. Take Tylenol or ibuprofen as directed below as needed for pain. 3. Return to the emergency department for worsening or uncontrollable pain, shortness of breath, fever, or other worsening of condition. Adult Pain & Fever Control: We recommend Acetaminophen (Tylenol) and Ibuprofen (Motrin,Advil) for pain and fever control. When fever is high or pain severe, both drugs can be used at the same time, but at different intervals. Please note the time differences. Your dose is: Acetaminophen 650mg every 4 to 6 hours Ibuprofen 400mg every 6-8 hours with food Note: do not take Acetaminophen with Hydrocodone (Vicodin, Lortab) or Oxycodone (Percocet). These medications also contain Acetaminophen. No more than 3000mg of Acetaminophen should be taken in 24 hours (for an adult). Referrals: Luli Vogel MD [Primary Care Provider] - As per Instructions Report Scribed for: Hannah Jauregui Report Scribed by: Caitlin Bautista Date of Report: 05/29/17 Time of Report: 17:34 Physician Review and Approval Statement: 05/29/17 17:34 Portions of this note were transcribed by a biomedical specialist. I personally performed a history, physical exam, medical decision making, and confirmed accuracy of information the transcribed note.
[2017-05-29 17:34] LABS: TROPONIN I < 0.012 ng/mL (0.000-0.034)
[2017-05-29] MEDS ORDERED: ONDANSETRON 4 MG/2 ML VIAL IVP ONE (17:53)
--- NOTE | 2017-05-29 17:59 | CPEKG ---
Heart Rate: 65 RR Interval: 923 P-R Interval: 184 QRSD Interval: 96 QT Interval: 440 QTC Interval: 458 P [place]: 29 QRS [place]: 0 T Wave [place]: 40 EKG Severity - NORMAL ECG - EKG Impression: SINUS RHYTHM Electronically Signed By: Hannah Jauregui 29-May-2017 22:17:43
[2017-05-29] MEDS ORDERED: IOPAMIDOL (ISOVUE 370) 100 ML BTL IV ONE (18:00)
[2017-05-29] MEDS ORDERED: ACETAMINOPHEN 325 MG TAB PO ONE (18:47)
[2017-05-29] MEDS ORDERED: KETOROLAC 15 MG/1 ML SDV IVP ONE (18:49)
[2017-05-29 19:16] VITALS: BP 162/88; PULSE 93; RESP 19; O2SAT 90
[2017-05-29 19:59] VITALS: TEMP 97.9
== END 2017-05-29 20:03 | disposition home or self-care (01) ==
LOC: EDUNIT#
DX: R07.89 Other chest pain (principal); G20 Parkinson's disease; Z79.82 Long term (current) use of aspirin; Z85.46 Personal history of malignant neoplasm of prostate
CPT/HCPCS: 71020; 71275; 93005; 96374; 96375; 99285; J1885; J2405; Q9967

== ENCOUNTER 2017-07-16 12:38 | Inpatient (IN) | payer OTHER ==
--- NOTE | 2017-07-16 12:43 | EDPHY ---
H & P Time Seen by Provider: 07/16/17 12:41 HPI/ROS: HPI: This is a 86-year-old male presents with Chief Complaint: Left flank pain Location: Left flank Quality: Pain Duration: Since yesterday Signs and Symptoms: no fever, no nausea, no vomiting, no hematemesis, no blood in stool, no abdominal bloating, no diarrhea, no back pain, no urinary symptoms , no testicular/groin pain, no indigestion, no chest pain, no shortness of breath Timing: Acute, worsening Severity: Moderate to severe Context: Patient has a history of Parkinson's, chronic UTI, status post prostatectomy for prostate cancer, kidney stones presents with gradual onset of left flank pain that started yesterday and waxed and wane. Patient bleed was related to musculoskeletal symptoms so he stretched and took some anti- inflammatories. 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 This afternoon the pain in the left flank began to increase in severity, coming in waves. Reports some urinary hesitancy but this is not new for him. Denies any hematuria/burning with urination/nausea/vomiting. Patient reports that he had to take stool softeners yesterday in order to have a bowel movement but he has been suffering from constipation for the last 6 months. Modifying Factors: None Comment: ROS: see HPI Constitutional: No fever, no chills, no weight loss Eyes: No blurred vision Respiratory: No shortness of breath, no cough Cardiovascular: No chest pain, no palpitations Gastrointestinal: No nausea, no vomiting, no diarrhea, no hematemesis, no blood in stool Genitourinary: No dysuria, no blood in urine Extremities: No myalgias, no edema Neurologic: No weakness, no numbness Skin: No rashes, no petechiae Hematologic: No bruising, no bleeding MEDICAL/SURGICAL/SOCIAL HISTORY: Medical/Surgical history: chronic UTI, parkinsons,left hip fx/repair, prostatectomy for CA prostate, essential tremor, chronic L knee pain, parkinsons Social history: Retired. CONSTITUTIONAL: Pleasant elderly white male, awake and alert, no obvious distress HEENT: Atraumatic and normocephalic, PERRL, EOMI. Tympanic membranes clear. Oropharynx clear, no exudate and moist pink mucosa. Airway patent. No lymphadenopathy. No meningismus. Cardiovascular: Normal S1/S2, regular rate, regular rhythm, without murmur rub or gallop. PULMONARY/CHEST: Symmetrical and nontender. Clear to auscultation bilaterally. Good air movement. No accessory muscle usage. ABDOMEN: Soft, nondistended, left upper flank tenderness, no rebound, no guarding, no peritoneal signs, no masses or organomegaly. Left CVAT. EXTREMITIES: 2/2 pulses, strength 5/5, no deformities, no clubbing, no cyanosis or edema. NEUROLOGICAL: no focal neuro deficits. GCS 15. SKIN: Warm and dry, no erythema. no rash. Good capillary refill. Source: Patient Exam Limitations: No limitations - Personal History Tetanus Vaccine Date: 2008 - Medical/Surgical History Hx Asthma: No Hx Chronic Respiratory Disease: No Hx Diabetes: No Hx Cardiac Disease: No Hx Renal Disease: No Hx Cirrhosis: No Hx Alcoholism: No Hx HIV/AIDS: No Hx Splenectomy or Spleen Trauma: No Other PMH: chronic UTI, parkinsons,left hip fx/repair,. prostetectomy for CA prostate. essential tremor. short term memory loss. chronic L knee pain. parkinsons - Social History Smoking Status: Never smoked Constitutional: Initial Vital Signs Temperature (C) 36.7 C 07/16/17 12:47 Heart Rate 73 07/16/17 12:47 Respiratory Rate 18 07/16/17 12:47 Blood Pressure 127/71 H 07/16/17 12:47 O2 Sat (%) 94 07/16/17 12:47 O2 Delivery Mode Nasal Cannula O2 (L/minute) 2 Allergies/Adverse Reactions: tramadol Allergy (Severe, Verified 06/24/16 13:17) altered LOC gentamicin [Gentamicin] Allergy (Intermediate, Verified 06/24/16 13:10) WELTS ciprofloxacin [From Cipro] Allergy (Verified 05/03/17 13:05) gabapentin Allergy (Verified 05/03/17 19:17) benzodiazipines Allergy (Uncoded 05/03/17 19:17) Home Medications: Medication Instructions Recorded ASPIRIN [ECOTRIN] 500 mg PO HS 05/03/17 Bisacodyl [Bisacodyl (*)] 5 mg PO Q48H 05/03/17 Carbidopa/Levodopa 25/100Mg 3 tab PO TID@07,12,20 05/03/17 [Sinemet 25/100 MG (*)] Sertraline HCl [Zoloft 25mg (*)] 25 mg PO DAILY 05/03/17 Medical Decision Making - Diagnostics Imaging Results: Imaging Impressions Abdomen/Pelvis CT 07/16/17 12:58 Impression: stones in the left ureter, at the pelvic inlet, over a 12 mm length and in the distal ureter just before the ureteropelvic junction over a 10 mm length. There is mild left hydroureter and apparently chronic thickening of the lining of the renal pelvis area of the left kidney remains small and scarred, measuring approximately 8 cm in length. Nonobstructive left renal stones are not significantly changed. No stones are seen in the right kidney or ureter. There is a stable right lateral 2 cm renal cyst. The right kidney measures 11.3 cm in length. There is either stable mild right hydronephrosis or a right peripelvic cyst. The patient's Thomas catheter has been removed. There is an unusual progressive calcification involving the base of the perineum that may be secondary to previous prostatectomy. There is a stable solitary gallstone in the gallbladder without secondary evidence of cholecystitis. There is chronic atherosclerotic calcification of the normal sized aorta. Artifact from a total left hip replacement obscures detail in the lower pelvis. Impression: Multiple clustered left ureteral stones both at the pelvic inlet and at the ureterovesical junction. Results called to Treasure Mata. Attention: This CT examination is specifically designed to evaluate patients who are clinically suspected of having acute obstructive uropathy. This examination does not use radiographic contrast, and as such, provides only a limited evaluation of the abdomen, pelvis and retroperitoneum. If there is further clinical suspicion for pathological conditions other than obstructive uropathy, a complete CT evaluation of the abdomen and pelvis utilizing intravenous, oral, and rectal contrast should be considered. General information for patients regarding this examination can be found at [email or web address]. If you have questions or comments about this report, please contact me at (hospital) or [phone] (cell). ED Course/Re-evaluation: Labs, urinalysis, IV fluids, CT abdomen and pelvis scan without contrast Given 2 L normal saline and IV morphine 4 mg upon arrival Called by radiologist who advised that he has multiple stones throughout his left ureter. stones in the left ureter, at the pelvic inlet, over a 12 mm length and in the distal ureter just before the ureteropelvic junction over a 10 mm length. Reassessed patient who reports that his pain is improving Creatinine 1.1; no leukocytosis. ED decision to consult for admission. Patient has multiple stones throat is left ureter that are large in size and he is not likely the past. He will likely need urological intervention. Spoke with Urology, Dr. Guerra who kindly agrees to consult on patient. Spoke with Hospitalist, Dr. Tejada, kindly agrees to admit patient for further care 1450: Spoke with PCP who advised in May 2017 Dr. Dennis, cystoscopy, hx urinary retention and hx ureterolithiasis. Patient's is here in the facility as well and I was just notified the patient and spouse were found in urine and feces soaked bed that they were lying in for the last 3 days. Patient will need to be admitted. Spoke with hospitalist, Dr. Tejada. This patient was seen under the supervision of my secondary supervising physician. I evaluated care for this patient independently. Differential Diagnosis: Abdominal pain including but not limited to appendicitis, cholecystitis, ureterolithiasis, gastritis and urinary tract infection. - Data Points Laboratory Results: Laboratory Results 07/16/17 12:45 07/16/17 12:45 07/16/17 07/16/17 07/16/17 14:30 12:45 12:45 WBC 7.52 10^3/uL 10^3/uL (3.80-9.50) RBC 4.32 10^6/uL L 10^6/uL (4.40-6.38) Hgb 13.0 g/dL L g/dL (13.7-17.5) Hct 39.3 % L % (40.0-51.0) MCV 91.0 fL fL (81.5-99.8) MCH 30.1 pg pg (27.9-34.1) MCHC 33.1 g/dL g/dL (32.4-36.7) RDW 14.5 % % (11.5-15.2) Plt Count 150 10^3/uL 10^3/uL (150-400) MPV 11.3 fL fL (8.7-11.7) Neut % (Auto) 82.6 % H % (39.3-74.2) Lymph % (Auto) 9.3 % L % (15.0-45.0) [place] % (Auto) 6.8 % % (4.5-13.0) Eos % (Auto) 0.5 % L % (0.6-7.6) Baso % (Auto) 0.5 % % (0.3-1.7) Nucleat RBC Rel Count 0.0 % % (0.0-0.2) Absolute Neuts (auto) 6.21 10^3/uL 10^3/uL (1.70-6.50) Absolute Lymphs (auto) 0.70 10^3/uL L 10^3/uL (1.00-3.00) Absolute Monos (auto) 0.51 10^3/uL 10^3/uL (0.30-0.80) Absolute Eos (auto) 0.04 10^3/uL 10^3/uL (0.03-0.40) Absolute Basos (auto) 0.04 10^3/uL 10^3/uL (0.02-0.10) Absolute Nucleated RBC 0.00 10^3/uL 10^3/uL (0-0.01) Immature Gran % 0.3 % % (0.0-1.1) Immature Gran # 0.02 10^3/uL 10^3/uL (0.00-0.10) Sodium 142 mEq/L mEq/L (135-145) Potassium 4.5 mEq/L mEq/L (3.5-5.2) Chloride 108 mEq/L mEq/L (97-110) Carbon Dioxide 20 mEq/l L mEq/l (22-31) Anion Gap 14 mEq/L mEq/L (8-16) BUN 31 mg/dL H mg/dL (7-23) Creatinine 1.1 mg/dL mg/dL (0.7-1.3) Estimated GFR > 60 Glucose 135 mg/dL H mg/dL (70-100) Calcium 9.0 mg/dL mg/dL (8.5-10.4) Urine Color YELLOW Urine Appearance MODERATELY TURBID Urine pH 7.0 (5.0-7.5) Ur Specific [place] 1.018 (1.002-1.030) Urine Protein 2+ H (NEGATIVE) Urine Ketones TRACE H (NEGATIVE) Urine Blood 1+ H (NEGATIVE) Urine Nitrate NEGATIVE (NEGATIVE) Urine Bilirubin NEGATIVE (NEGATIVE) Urine Urobilinogen NEGATIVE EU EU (0.2-1.0) Ur Leukocyte Esterase 3+ H (NEGATIVE) Urine RBC 50-182 /hpf H /hpf (0-3) Urine WBC 50-182 /hpf H /hpf (0-3) Ur Epithelial Cells TRACE /lpf /lpf (NONE-1+) Urine Bacteria 1+ /hpf H /hpf (NONE SEEN) Urine Mucus TRACE /lpf /lpf (NONE-1+) Urine Glucose NEGATIVE (NEGATIVE) Medications Given: Discontinued Medications Diazepam (Valium) 2.5 mg IVP EDNOW ONE Stop: 07/16/17 13:32 Last Admin: 07/16/17 13:39 Dose: 2.5 mg Sodium Chloride (Ns) 1,000 mls @ 0 mls/hr IV ONCE ONE; Wide Open PRN Reason: Protocol Stop: 07/16/17 12:59 Last Admin: 07/16/17 13:07 Dose: 1,000 mls Sodium Chloride (Ns) 1,000 mls @ 0 mls/hr IV ONCE ONE PRN Reason: Wide Open Stop: 07/16/17 14:21 Last Admin: 07/16/17 14:26 Dose: 1,000 mls Morphine Sulfate (Morphine) 4 mg IVP EDNOW ONE Stop: 07/16/17 13:00 Last Admin: 07/16/17 13:07 Dose: 4 mg Ondansetron HCl (Zofran) 4 mg IVP EDNOW ONE Stop: 07/16/17 12:59 Last Admin: 07/16/17 13:07 Dose: 4 mg Departure - Departure Disposition: [facility] Acute Clinical Impression: Ureterolithiasis Condition: Fair
[2017-07-16] MEDS ORDERED: NS 1,000 ML IV ONE ×2 (12:58→14:20)
[2017-07-16] MEDS ORDERED: ONDANSETRON 4 MG/2 ML VIAL IVP ONE (12:58)
[2017-07-16 13:05] LABS: PLATELET COUNT 150 10^3/uL (150-400)
[2017-07-16] MEDS ORDERED: DIAZEPAM 10 MG/2 ML SYR IVP ONE (13:31)
--- NOTE | 2017-07-16 15:28 | ASMTLACE ---
CALLUM Acuity / Level of Answers: Yes Care: Did the patient have an inpatient admission? Comorbidities - select Answers: Any tumor (including all that apply lymphoma or leukemia) # of Emergency department Answers: 1-2 visits in the last 6 months Score: 6 Date Signed: 07/16/2017 03:27 PM Electronically Signed By:Francie Nugent RN
--- NOTE | 2017-07-16 15:56 | ASMTCASEMG ---
Living Arrangements What is your living Answers: With Spouse arrangement? Who do you live with? Type Of Residence What kind of residence do Answers: House you live in? Services Used Prior to Admission Community Services Used Answers: [facility] Prior to Admission Other Services Used Prior to Admission Notes: [facility]-Kiera Chowdary (Electric Knife Operator) [phone] [facility]NADO- JONN Frank (Electric Knife Operator) [phone] Discharge Plan Comments Coordination Status Comments Notes: Patient presents to ER with C/O flank pain and recent history of kidney stones. He was brought to the ER with his , Carmen. They are both admitting to the hospital today. I have met with patient and his care coordinators with: [facility]; Kiera Chowdary ESTEFANIA Frank LCSW Patient is followed closely by both agencies. Per Monika, patient is "decisional" although he does have some STM issues. He has a DIMAS, Rekha with whom I have also spoken. She is very helpful in providing detailed health information and will be available for CM as it related to discharge planning Patient's PCP is Dr. Luli Garcia with [facility] Date Signed: 07/16/2017 03:55 PM Electronically Signed By:Francie Nugent RN
[2017-07-16] MEDS ORDERED: ONDANSETRON 4 MG/2 ML VIAL IVP PRN (16:20)
[2017-07-16] MEDS ORDERED: ONDANSETRON DISINTEGRATING 4 MG TAB PO PRN (16:20)
--- NOTE | 2017-07-16 17:09 | GHP ---
[f rep st] HISTORY AND PHYSICAL DATE OF ADMISSION: 07/16/2017 HISTORY OF PRESENT ILLNESS: The patient is a pleasant 86-year-old gentle with a history of chronic l eft nephrolithiasis that was obstructing and led to an atrophic kidney, as well as Parkinson's. He [place]. He presents today with left flank pain. It has c ome and gone over the last couple of days. When I speak with him he is currently pain free, but he r eceived some pain medicine and Valium. He has not had hematuria, urgency or frequency. He did take some anti-inflammatories. He was brought in concomitantly with his . Apparently, they were foun d in a home of somewhat disrepair. When I speak with him, he acknowledges that he and his dinorah cassidy are unable to live safely on their own in [place] as they are. He denies fever, chills. He denie s cough. He denies sputum. He denies coughing with eating. Denies diarrhea. He also notes that he has been suffering from some constipation of late. REVIEW OF SYSTEMS: A complete 10-point review of systems conducted, negative except as noted in the HPI. SOCIAL HISTORY: Occasional alcohol. 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 Nonsmoker. Rare alcohol. FAMILY HISTORY: Parents . PAST MEDICAL HISTORY: 1. Nephrolithiasis of the left ureter. In April 2017, he had a 12 x 6 mm stent in the left proxi mal ureter with atrophy of the left kidney. The patient is uncertain whether he has had urologic dylan luis for removal of stones. He was seen in the [address] Flowers as an inpatient consult. It does n ot appear that he has had urologic surgery. 2. Parkinson's. 3. Suspected dementia. 4. History of lithotripsy. 5. Recurrent UTIs with a history of ESBL. 6. Prostate cancer, status post prostatectomy with radiation. 7. Left hip surgery with total hip arthroplasty. ALLERGIES: Tramadol, gentamicin, ciprofloxacin, gabapentin, benzodiazepines. PHYSICAL EXAMINATION: PRESENTING VITAL SIGNS: Temp 36.7, blood pressure 127/71, pulse 73, breathing 18 times a minute, 94% on room air. GENERAL: No acute distress, talkative. HEENT: Sclerae anicte chrystal. Oropharynx clear. Mucous membranes are moist. NECK: Supple without lymphadenopathy or JVD. LUNGS: Clear to auscultation bilaterally. HEART: S1, S2. ABDOMEN: Soft, nontender, nondistended. LOWER EXTREMITIES: without edema. Calves nontender. SKIN: Without rash. NEUROLOGIC: Parkinson bj tremor of his hands and feet. LABS: White count 7.5, hematocrit 39, platelets are 150,000, sodium 142, potassium 4.5, chloride 108 , bicarb 20, BUN 31, slightly greater than baseline, creatinine 1.1 which is baseline. His glucose i s 135. Review of his creatinine over the last couple of years shows a baseline of about 1, although it has been inching up from 5 or 10 years ago. This likely corresponds to the atrophy of that left k idney. Imaging is an abdominal pelvis CT that shows multiple stones in the proximal left ureter at the pelvi c inlet, 12 mm in length, and at the distal year just before the ureteropelvic junction that is over 10 mm long. There is mild left hydroureter with apparent chronic thickening of the lining of renal p lobito, as well as an atrophic left kidney. I discussed the case with CHELSEA Garcia, of the Emergency Department. ASSESSMENT/PLAN: 1. An 86-year-old gentleman presents with left flank pain. I suspect this is secondary to the dista l migration of this large left stone. At this point in time, the reasons for removal are questionabl e given the atrophic nature of that kidney. Also I suspect his pain is due to the stones migrating o r perhaps even breaking up. Also possible is a formation of new stones. Urology has been consulted and will see him. 2. Parkinson's. We will continue his medications. 3. Pyuria. The patient has 50-180 white cells, which is greater than usual, though he had this many during a previous admission. This may be urothelial irritation with migration of the stone. Cannot rule out infection. Reviewing his micro in the past shows diversity of microorganisms, including a fairly resistant Klebsiella and Enterococcus. To that end, I have ordered a urine consult and start him on ampicillin and Bactrim, and await consult culture results. 4. Prophylaxis: Sequential compression devices. DISPOSITION: Inpatient status. I think he and his will need a higher level of care. /[id number]/MODL
[2017-07-16] MEDS ORDERED: AMPICILLIN SODIUM 1 GM in STERILE WATER INJ 15 ML IV ONE (18:30)
[2017-07-16] MEDS: ACETAMINOPHEN 325 MG TAB PO PRN (18:36)
[2017-07-16] MEDS ORDERED: HYDROmorphONE/DILAUDID 1 MG/ML INJ IVP PRN (18:38)
[2017-07-16] MEDS: CARBIDOPA/LEVODOPA 25 MG/100 MG TAB PO SCH (20:20)
[2017-07-16] MEDS: SULFAMETHOX/TMP 800/160 MG 1 TAB PO SCH (20:20)
[2017-07-16] MEDS: ASPIRIN EC 325 MG TAB PO SCH (20:20)
[2017-07-16] MEDS: SERTRALINE HCL 25 MG TAB PO SCH (20:20)
--- NOTE | 2017-07-16 21:06 | GCON ---
[f rep st] CONSULTATION DATE OF CONSULTATION: 07/16/2017 CONSULTING PHYSICIAN: Steve Tejada. REASON FOR CONSULTATION: Left ureteral calculi. HISTORY OF PRESENT ILLNESS: This patient is an 86-year-old gentleman with multiple medical problems, including Parkinson disease, history of prostate cancer status post radical prostatectomy, chronic l eft kidney stones with left renal atrophy. He most recently was seen by Dr. Flowers in 2017 for manage ment of both his stone and his urinary incontinence. Patient did not want any treatment at that time . However, he was brought into the emergency department today with acute left renal colic. A repeat CT scan showed multiple stones in the pelvic brim and lower ureter, consistent with Steinstrasse's. Patient has had intermittent control of his pain, but no fevers or chills. PAST MEDICAL HISTORY: As above. He also has Parkinson's, probable dementia, history of recurrent st ones, prostate cancer, and left hip surgery. ADMISSION MEDICATIONS: Noted in the chart. IMAGING STUDIES: Reviewed by me. There is possibility of a urinary tract infection, although the pa tient is afebrile. IMPRESSION: Multiple, partially-obstructing left ureteral calculi causing left flank pain. PLAN: I discussed the findings with the patient. I explained that the pain is likely due to movemen t of the stones with an acute obstructive process. At this juncture, he is amenable to having the st ones removed to relieve his pain. I proposed ureteroscopy and laser lithotripsy as the most efficien t way. As there is no urgency, we will try to perform a single stage procedure on 07/17/2017, to clear his ureteral stones. Of note, there are no right-sided stones. /[id number]/MODL
[2017-07-17] MEDS ORDERED: AMPICILLIN SODIUM 1 GM in NS 100 ML IV SCH
[2017-07-17] MEDS: AMPICILLIN SODIUM 1 GM in STERILE WATER INJ 15 ML IV SCH ×5 (02:54→21:24)
[2017-07-17] MEDS: CARBIDOPA/LEVODOPA 25 MG/100 MG TAB PO SCH ×3 (07:57→19:50)
--- NOTE | 2017-07-17 08:44 | PDMN ---
Medical Necessity Medical necessity: M320 renal colic and kidney stones: atrophic kidney with mult. stones seen on CT. parkinsons, Pyuria, poss UTI, PT lives in [place]-
[2017-07-17] MEDS: SULFAMETHOX/TMP 800/160 MG 1 TAB PO SCH ×2 (09:20→20:04)
--- NOTE | 2017-07-17 11:00 | HOSPPROG ---
Hospitalist Progress Note Assessment/Plan: 86y male with c/o flank pain. First encounter, chart reviewed. D/W RN # Kidney stone to intervention today #Pain controlled #Parkinson's stable at baseline #Pyuria cont abx therapy based on past cultures follow current urine culture reviewed past urine cultures #Dispo will need to go to [facility] in the am if procedure goes well Subjective: Feeling well. Still having intermittent pain. Objective: Vital Signs Temp Pulse Resp BP Pulse Ox 36.6 C 69 16 130/75 H 94 07/17/17 07:45 07/17/17 07:45 07/17/17 07:45 07/17/17 07:45 07/17/17 07:45 Laboratory Results 07/17/17 04:52 07/16/17 07/17/17 07/18/17 05:59 05:59 05:59 Output Total 100 Balance -100 - Physical Exam Constitutional: appears nourished, not in pain, chronically ill appearing Eyes: PERRL, anicteric sclera, EOMI Ears, Nose, Mouth, Throat: moist mucous membranes, hearing normal, ears appear normal Cardiovascular: regular rate and rhythym, No JVD, No edema Respiratory: no respiratory distress, no rales or rhonchi, reduced air movement Gastrointestinal: normoactive bowel sounds, No tenderness, No ascites Skin: warm, normal color, No erythema Musculoskeletal: normal joint ROM, no joint effusions, generalized weakness Neurologic: AAOx3 Psychiatric: interacting appropriately, not anxious, not encephalopathic, poor judgement, poor memory ICD10 Worksheet Patient Problems: Problems Problem Status Onset Syncope Acute UTI (lower urinary tract infection) Acute Thrombocytopenic disorder Acute Sepsis - Septicemia Acute Urinary retention Acute Pelvic pain in male Acute Groin pain Acute Urinary tract infection Acute Ureterolithiasis Acute
--- NOTE | 2017-07-17 11:12 | ASMTCMCOM ---
CM Note CM Note Notes: Received call from Monika CORTEZ for [facility] [phone] (cell: [phone]) She states that they have been taking care of pt and his , although she is not with the same program. They have had a caregiver who helps but she is now also in the hospital on 3N. Please read las note from ED CM. Date Signed: 07/17/2017 11:11 AM Electronically Signed By:Edyta Blakely RN
--- NOTE | 2017-07-17 11:23 | ASMTCMCOM ---
CM Note CM Note Notes: Continuation of previous charting d/t computer issues: Per RN, pt's daughter is working with services that help both parents and she will be flying out from [place] next week. DC Plan: Per Monika GRANADO, pt will dc to [facility] for respite. Date Signed: 07/17/2017 11:22 AM Electronically Signed By:Edyta Blakely RN
--- NOTE | 2017-07-17 11:28 | ASMTLACE ---
LACE Length of stay for Answers: 1 day current admission Acuity / Level of Answers: No Care: Did the patient have an inpatient admission? Comorbidities - select Answers: Dementia all that apply # of Emergency department Answers: 1-2 visits in the last 6 months Score: 5 Date Signed: 07/17/2017 11:27 AM Electronically Signed By:Edyta Blakely RN
[2017-07-17] MEDS ORDERED: fentaNYL 100 MCG/2 ML INJ ONE (13:14)
[2017-07-17] MEDS ORDERED: PROPOFOL 200 MG/20 ML VIAL ONE ×2 (13:14→13:20)
[2017-07-17] MEDS ORDERED: IOPAMIDOL (ISOVUE-M 300) 15 ML VIAL ONE (13:35)
--- NOTE | 2017-07-17 14:51 | POSTOPPROG ---
Post Op Note Date of Operation: 07/17/17 Surgeon: Jay Guerra Anesthesia: LMA Pre-op Diagnosis: Left ureteral stones Post-op Diagnosis: same Indication: symptomatic left ureteral obstruction Procedure: Left ureteroscopy, laser lithotripsy, stone extraction, stent placement Findings: multiple stones at pelvic brim, UVJ. Inf/Abcess present in the surg proc area at time of surgery?: No EBL: Minimal
[2017-07-17] MEDS ORDERED: ONDANSETRON 4 MG/2 ML VIAL IVP PRN (15:15)
[2017-07-17] MEDS ORDERED: NS 500 ML IV PRN (15:15)
[2017-07-17] MEDS ORDERED: ALBUTEROL 3 ML DEYVIAL IH PRN (15:15)
[2017-07-17] MEDS ORDERED: NALOXONE HCL 0.4 MG/ML INJ IVP PRN (15:15)
[2017-07-17] MEDS: ACETAMINOPHEN 325 MG TAB PO PRN (17:32)
[2017-07-17] MEDS ORDERED: BISACODYL 10 MG SUPP PR PRN (17:49)
[2017-07-17] MEDS ORDERED: LACTULOSE 20 GM/30 ML UDCUP PO PRN (17:49)
[2017-07-17] MEDS ORDERED: POLYETHYLENE GLYCOL 3350 17 GM PKT PO PRN (17:49)
[2017-07-17] MEDS ORDERED: MAGNESIUM HYDROXIDE 30 ML UDCUP PO PRN (17:49)
[2017-07-17] MEDS: SENNOSIDES/DOCUSATE SODIUM TAB PO SCH (20:03)
[2017-07-17] MEDS: SERTRALINE HCL 25 MG TAB PO SCH (20:04)
[2017-07-17] MEDS: ASPIRIN EC 325 MG TAB PO SCH (20:04)
[2017-07-17] MEDS: HYDROCODONE/APAP 5/325 TAB PO PRN (20:58)
--- NOTE | 2017-07-17 22:13 | GOP ---
[f rep st] OPERATIVE REPORT DATE OF OPERATION: 07/17/2017 SURGEON: Jay Guerra MD PREOPERATIVE DIAGNOSIS: Left ureteral calculi. POSTOPERATIVE DIAGNOSIS: Left ureteral calculi. PROCEDURE PERFORMED: Left ureteroscopy with laser lithotripsy, stone extraction, and placement of ur eteral stent. FINDINGS: INDICATIONS: The patient is an 86-year-old male with history of left renal stones. He was admitted from the emergency department last night with multiple obstructing left ureteral stones. After discu ssing options, at this time, he elected to undergo stone removal. DESCRIPTION OF PROCEDURE: After informed consent with general LMA anesthesia, the patient was placed in the lithotomy position with his genitalia sterilely prepped and draped. Cystoscopy was carried o ut and a Sensor guidewire passed into the left renal pelvis under fluoroscopic control. The semi rig id scope was advanced into the lower ureter where multiple stones were identified. After removing th e leading stone, many smaller fragments were flushed out. A Nitinol basket was used to remove others . The scope was advanced more proximally. Due to tortuosity of the ureter, the semi rigid scope could not be passed beyond the iliac vessels. Therefore, it was removed and after passing a 14-Romansh flex ible ureteroscopy access sheath, the digital flexible ureteroscope was advanced to the more proximal stones. These were larger in general and were fragmented using 6.4 disla of energy with the holmium laser. The fragments were flushed caudally. The scope was advanced into the renal pelvis and examin ation failed to demonstrate any residual stones. The scope was then removed under vision. Contrast was used to opacify the upper collecting system. A 6-Romansh multi length stent was then positioned with the withdrawal string left in place. The patient was awakened, transferred to the recovery room in stable condition. There were no intrao perative complications or blood loss. Specimens were left within the bladder, and these were stones. /[id number]/MODL
[2017-07-18] MEDS: HYDROCODONE/APAP 5/325 TAB PO PRN (02:51)
[2017-07-18] MEDS: AMPICILLIN SODIUM 1 GM in STERILE WATER INJ 15 ML IV SCH ×2 (03:11→09:05)
[2017-07-18] MEDS: CARBIDOPA/LEVODOPA 25 MG/100 MG TAB PO SCH ×2 (06:18→11:29)
--- NOTE | 2017-07-18 08:41 | HOSPPROG ---
Hospitalist Progress Note Assessment/Plan: Patient is an 86 y/o male who hx of chronic nephrolithiasis as well as Parkinson 's. He came to the ER due to flank pain. Today is my first encounter w the patient , chart reviewed. *left ureteral calculi s/p l ureteroscopy with laser lithotripsy, stent *Parkinson has been caring for his *pyuria ampicillin and Bactrim urine cx has more than 3 colony counts reviewed his care w Luli Vogel who will be f/u with this *dementia stable *Plan: [facility], will dc him to with close f/u with Dr Vogel Subjective: Nils c/o some bladder spasms. Objective: Vital Signs Temp Pulse Resp BP Pulse Ox 36.9 C 84 18 122/67 H 95 07/18/17 07:20 07/18/17 07:20 07/18/17 07:20 07/18/17 07:20 07/18/17 07:20 Laboratory Results 07/18/17 05:03 07/17/17 07/18/17 07/19/17 05:59 05:59 05:59 Intake Total 720 Output Total 100 100 Balance -100 620 - Physical Exam Constitutional: no apparent distress, appears nourished Eyes: PERRL Ears, Nose, Mouth, Throat: hearing normal Respiratory: no respiratory distress Gastrointestinal: normoactive bowel sounds Skin: warm, normal color Musculoskeletal: generalized weakness Neurologic: AAOx3 Psychiatric: interacting appropriately ICD10 Worksheet Patient Problems: Problems Problem Status Onset Syncope Acute UTI (lower urinary tract infection) Acute Thrombocytopenic disorder Acute Sepsis - Septicemia Acute Urinary retention Acute Pelvic pain in male Acute Groin pain Acute Urinary tract infection Acute Ureterolithiasis Acute
[2017-07-18] MEDS: SULFAMETHOX/TMP 800/160 MG 1 TAB PO SCH (08:46)
[2017-07-18] MEDS: SENNOSIDES/DOCUSATE SODIUM TAB PO SCH (08:51)
[2017-07-18] MEDS ORDERED: BISACODYL 5 MG EC TAB PO SCH (09:00)
[2017-07-18] MEDS: ACETAMINOPHEN 325 MG TAB PO PRN (09:11)
--- NOTE | 2017-07-18 10:37 | SOAPPROG ---
HERNANDEZ Progress Note Assessment/Plan: Assessment: Left ureteral calculi s/p ureteroscopy, laser lithotripsy, stent placement Plan: From a standpoint, the patient can be discharged to [facility]. A followup appointment for stent removal should be scheduled. Please contact [phone] to set up this appointment. 07/18/17 10:35 Objective: Vital Signs Temp Pulse Resp BP Pulse Ox 36.9 C 84 18 122/67 H 95 07/18/17 07:20 07/18/17 07:20 07/18/17 07:20 07/18/17 07:20 07/18/17 07:20 Laboratory Results 07/18/17 05:03 07/17/17 07/18/17 07/19/17 05:59 05:59 05:59 Intake Total 720 Output Total 100 100 Balance -100 620 ICD10 Worksheet Patient Problems: Problems Problem Status Onset Ureterolithiasis Acute Groin pain Acute Pelvic pain in male Acute Sepsis - Septicemia Acute Syncope Acute Thrombocytopenic disorder Acute UTI (lower urinary tract infection) Acute Urinary retention Acute Urinary tract infection Acute
[2017-07-18 11:27] VITALS: BP 108/52; PULSE 81; RESP 16; TEMP 97.5; O2SAT 94
--- NOTE | 2017-07-18 12:32 | PDIAF ---
- Diagnosis Diagnosis: left ureteral calculi s/p scope with laser and stent, pyruia Code Status: Full Code - Medication Management Discharge Medications: Medications to Continue on Transfer ASPIRIN [ECOTRIN] 500 mg PO HS 05/03/17 [Last Taken 07/15/17] Bisacodyl [Bisacodyl (*)] 5 mg PO Q48H 05/03/17 [Last Taken 07/16/17] Carbidopa/Levodopa 25/100Mg [Sinemet 25/100 MG (*)] 3 tab PO TID@07,12,20 [Last Taken 07/16/17 07:00] Sertraline HCl [Zoloft 25mg (*)] 25 mg PO HS 05/03/17 [Last Taken 05/03/17] Hydrocodone/APAP 5/325 [[place] 5/325 (*)] 1 tab PO Q4HRS PRN tab 07/18/17 [Last Taken Unknown] Polyethylene Glycol 3350 [Miralax 17 gm (*)] 17 gm PO DAILY PRN pkt 07/18/17 [ Last Taken Unknown] Sennosides/Docusate Sodium [Senokot-S] 1 - 2 tab PO BID tab 07/18/17 [Last Taken Unknown] Discharge Medications: Refer to the Discharge Home Medication list for PRN reason. - Orders Services needed: Physical Therapy, Occupational Therapy Isolation Type: None Diet Recommendation: no restrictions on diet Diet Texture: Regular Texture Diet Equipment: A fo Additional: it is important your doctor f/u with your urine culture - Follow Up Care Current Providers and Referrals: Luli Vogel MD [Primary Care Provider] -
--- NOTE | 2017-07-18 12:34 | PDIAF ---
- Diagnosis Diagnosis: left ureteral calculi s/p scope with laser and stent, pyruia Code Status: Full Code - Medication Management Discharge Medications: Medications to Continue on Transfer ASPIRIN [ECOTRIN] 500 mg PO HS 05/03/17 [Last Taken 07/15/17] Bisacodyl [Bisacodyl (*)] 5 mg PO Q48H 05/03/17 [Last Taken 07/16/17] Carbidopa/Levodopa 25/100Mg [Sinemet 25/100 MG (*)] 3 tab PO TID@07,12,20 [Last Taken 07/16/17 07:00] Sertraline HCl [Zoloft 25mg (*)] 25 mg PO HS 05/03/17 [Last Taken 05/03/17] Hydrocodone/APAP 5/325 [[place] 5/325 (*)] 1 tab PO Q4HRS PRN tab 07/18/17 [Last Taken Unknown] Polyethylene Glycol 3350 [Miralax 17 gm (*)] 17 gm PO DAILY PRN pkt 07/18/17 [ Last Taken Unknown] Sennosides/Docusate Sodium [Senokot-S] 1 - 2 tab PO BID tab 07/18/17 [Last Taken Unknown] Discharge Medications: Refer to the Discharge Home Medication list for PRN reason. - Orders Services needed: Physical Therapy, Occupational Therapy Isolation Type: None Diet Recommendation: no restrictions on diet Diet Texture: Regular Texture Diet Additional: it is important your doctor f/u with your urine culture .A followup appointment for stent removal should be scheduled. Please contact [phone] to set up this appointment. - Follow Up Care Current Providers and Referrals: Luli Vogel MD [Primary Care Provider] -
--- NOTE | 2017-07-18 13:45 | ASDISCHSUM ---
Discharge Information Plan Status:Home with No Needs Medically Cleared to Leave:07/17/2017 Discharge Date:07/17/2017 CM D/C Disposition:Nursing Home Facility ADT D/C Disposition: Projected Discharge Date:07/18/2017 11:00 AM Transportation at D/C:Wheelchair Van Discharge Delay Reason: Follow-Up Date:07/18/2017 11:00 AM Discharge Slot: Final Diagnosis: Placement Information Referral Type:*Shelter/SNF Referral ID:[id number] Provider Name:[facility] Address 1:[address] Address 2: City:[place] Selection Factors: State:[place] Patient Contact Information Contact Name:DARIELA Relationship: Address:[address] [place] [address] Work Phone: City:[facility] Phone: State/Zip Code:[place] [address] Email: Financial Information Financial Class:HMO and PPO Plans Primary Plan Desc:[facility] Primary Plan Number:[id number] Secondary Plan Desc: Secondary Plan Number: Assessment Information LACE LACE Acuity / Level of Answers: Yes Care: Did the patient have an inpatient admission? Comorbidities - select Answers: Any tumor (including all that apply lymphoma or leukemia) # of Emergency department Answers: 1-2 visits in the last 6 months Score: 6 Date Signed: 07/16/2017 03:27 PM Electronically Signed By:Francie Nugent RN [facility] Initial CM Assessment Living Arrangements What is your living Answers: With Spouse arrangement? Who do you live with? Type Of Residence What kind of residence do Answers: House you live in? Services Used Prior to Admission Community Services Used Answers: [facility] Prior to Admission Other Services Used Prior to Admission Notes: [facility]-Kiera Chowdary (Bingo Usher) [phone] [facility]- JONN Frank (Bingo Usher) [phone] Discharge Plan Comments Coordination Status Comments Notes: Patient presents to ER with C/O flank pain and recent history of kidney stones. He was brought to the ER with his , Carmen. They are both admitting to the hospital today. I have met with patient and his care coordinators with: [facility]; Kiera Chowdary [facility]; Monika LUNSFORD Patient is followed closely by both agencies. Per Monika, patient is "decisional" although he does have some STM issues. He has a Rekha COCHRAN with whom I have also spoken. She is very helpful in providing detailed health information and will be available for CM as it related to discharge planning Patient's PCP is Dr. Luli Garcia with [facility] Date Signed: 07/16/2017 03:55 PM Electronically Signed By:Francie Nugent RN [facility] CM Progress Note CM Note CM Note Notes: Received call from Monika CORTEZ for [facility] [phone] (cell: [phone]) She states that they have been taking care of pt and his , although she is not with the same program. They have had a caregiver who helps but she is now also in the hospital on 3N. Please read las note from ED CM. Date Signed: 07/17/2017 11:11 AM Electronically Signed By:Edyta Blakely RN [facility] CM Progress Note CM Note CM Note Notes: Continuation of previous charting d/t computer issues: Per RN, pt's daughter is working with services that help both parents and she will be flying out from [place] next week. DC Plan: Per Monika at [facility], pt will dc to [facility] for respite. Date Signed: 07/17/2017 11:22 AM Electronically Signed By:Edyta Blakely RN LACE LACE Length of stay for Answers: 1 day current admission Acuity / Level of Answers: No Care: Did the patient have an inpatient admission? Comorbidities - select Answers: Dementia all that apply # of Emergency department Answers: 1-2 visits in the last 6 months Score: 5 Date Signed: 07/17/2017 11:27 AM Electronically Signed By:Edyta Blakely RN Intervention Information Intervention Type:*Incorrect Registration Date of Service:07/17/2017 08:33 AM Patient Type:Observation Staff Member:EARNESTINE Caldwell Dina Hours: Discipline: Severity: Comment:
--- NOTE | 2017-07-18 20:56 | GDS ---
[f rep st] DISCHARGE SUMMARY DISCHARGE DIAGNOSES: 1. Left ureteral calculi. 2. Parkinson's. 3. Pyuria. 4. Dementia. 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 He lives with his in [place]. He presented with left flank pain. It would come and go over the last several days. He was admitted and seen by Dr. Guerra, and he had a ureteroscopy with laser lithotripsy and stent. Today, he is markedly better. He will follow up with Urology in the outpatient setting. HOSPITAL COURSE BY PROBLEM: 1. Left ureteral calculi. He is status post ureteroscopy and laser lithotripsy , as well as a stent. I reviewed with his [facility] doctor that he needs close followup to get the stent removed. 2. Parkinson's. Stable. 3. Pyuria. He was treated with ampicillin and Bactrim. His urine culture showed more than 3 colony counts. I reviewed his care with Dr. Luli Vogel, who will follow up with this. At this time, we will not treat. He is asymptomatic. 4. Dementia. Stable. DISCHARGE CONDITION: Stable. Blood pressure is 122/67, respiratory rate is 18 , O2 sat on room air is 95%, pulse is 84, and temperature is 36.9 Celsius. MEDICATIONS AT DISCHARGE: Please see the EMR. DISCHARGE INSTRUCTIONS: 1. Further follow up with Urology for stent removal. 2. If he develops fever, chills, chest pain, or shortness of breath, to return to the ER. 3. Dr. Luli Vogel to follow up in regard to his urine culture. Greater than 30 minutes for discharging and coordinating the patient's care. /[id number]/MODL MTDD
== END 2017-07-18 14:55 | DRG 661 ==
LOC: EDUNIT# → OBSVTOIN 15:14 → F3E 18:28
PROVIDERS: ADMIT Internal Medicine; ATTEND Internal Medicine
PROC: 0TC74ZZ Extirpation of Matter from Left Ureter, Percutaneous Endoscopic Approach (ICD-10-PCS; principal; 2017-07-17 13:30)
PROC: 0T774DZ Dilation of Left Ureter with Intraluminal Device, Percutaneous Endoscopic Approach (ICD-10-PCS; principal; 2017-07-17 13:30)
DX: N20.1 Calculus of ureter (principal); G20 Parkinson's disease; F03.90 Unspecified dementia, unspecified severity, without behavioral disturbance, psychotic disturbance, mood disturbance, and anxiety; Z85.46 Personal history of malignant neoplasm of prostate; Z90.79 Acquired absence of other genital organ(s); Z87.440 Personal history of urinary (tract) infections
CPT/HCPCS: 96374; 97161-GP; 97166-GO; 97532-GO; 97535-GO; C1769; C1894; C2625; J0290; J2405; J2704; J3010; Q9967

== ENCOUNTER 2018-03-01 20:23 | Emergency (ER) | payer OTHER, MEDICAID ==
[2018-03-01 21:30] LABS: PLATELET COUNT 156 10^3/uL (150-400)
[2018-03-01] MEDS ORDERED: CEPHALEXIN 500 MG CAP PO ONE (22:58)
--- NOTE | 2018-03-01 23:13 | EDPHY ---
H & P Stated Complaint: abnormal movement after change in parkinsons meds Time Seen by Provider: 03/01/18 21:48 HPI/ROS: Chief Complaint: Confusion, worsening Parkinson's symptoms HPI: 87-year-old male with a history of Parkinson's disease is being sent in from his snf facility with increasing abnormal movements. Patient did have his medications changed 2 days ago. These were changed from the orally dissolving Sinemet to the normal tablets. They are the same dosing in were given in the same dosing schedule. Patient is concerned that the new medications may not be as effective. He also has a history of recurrent urinary tract infections and has had some urinary incontinence which is not unusual for him. No fevers or chills. He is awake alert and otherwise at his baseline. He does have a history of some dementia. He is concerned that he may have missed a medication does earlier. Per his medical power of trust and estates attorney who is at the bedside this is also not unusual for him. No abdominal pain. No recent falls or head injuries. ROS: 10 systems were reviewed and were negative except those elements noted in the HPI. PMH: Parkinson's disease, urinary tract infections Social History: No smoking, no alcohol, no recreational drug use Family History: non-contributory Physical Exam: Gen: Awake, Alert, No Distress HEENT: Nose: no rhinorrhea Eyes: PERRLA, EOMI Mouth: Moist mucosa Neck: Supple, no JVD Chest: nontender, lungs clear to auscultation Heart: S1, S2 normal, no murmur Abd: Soft, non-tender, no guarding Back: no CVA tenderness, no midline tenderness Ext: no edema, non-tender Skin: no rash Neuro: CN II-XII intact, Sensation grossly intact, Strength 5/5 in bilateral upper and lower extremities - Personal History Current Tetanus/Diphtheria Vaccine: Yes Current Tetanus Diphtheria and Acellular Pertussis (TDAP): Yes Tetanus Vaccine Date: 2008 - Medical/Surgical History Hx Asthma: No Hx Chronic Respiratory Disease: No Hx Diabetes: No Hx Cardiac Disease: No Hx Renal Disease: No Hx Cirrhosis: No Hx Alcoholism: No Hx HIV/AIDS: No Hx Splenectomy or Spleen Trauma: No Other PMH: chronic UTI, parkinsons,left hip fx/repair,. prostetectomy for CA prostate. essential tremor. short term memory loss. chronic L knee pain. parkinsons - Social History Smoking Status: Never smoked Constitutional: Initial Vital Signs Temperature (C) 36.6 C 03/01/18 20:30 Heart Rate 62 03/01/18 20:30 Respiratory Rate 16 03/01/18 20:30 Blood Pressure 149/80 H 03/01/18 20:30 O2 Sat (%) 97 03/01/18 20:30 O2 Delivery Mode Room Air Allergies/Adverse Reactions: tramadol Allergy (Severe, Verified 03/01/18 20:29) altered LOC gentamicin [Gentamicin] Allergy (Intermediate, Verified 03/01/18 20:29) WELTS ciprofloxacin [From Cipro] Allergy (Verified 03/01/18 20:29) gabapentin Allergy (Verified 03/01/18 20:29) benzodiazipines Allergy (Uncoded 03/01/18 20:29) Home Medications: Medication Instructions Recorded ASPIRIN [ECOTRIN] 500 mg PO HS 05/03/17 Bisacodyl [Bisacodyl (*)] 5 mg PO Q48H 05/03/17 Carbidopa/Levodopa 25/100Mg 3 tab PO TID@,12,20 05/03/17 [Sinemet 25/100 MG (*)] Sertraline HCl [Zoloft 25mg (*)] 25 mg PO HS 05/03/17 Hydrocodone/APAP 5/325 [[place] 1 tab PO Q4HRS PRN tab 07/18/17 5/325 (*)] Polyethylene Glycol 3350 [Miralax 17 gm PO DAILY PRN pkt 07/18/17 17 gm (*)] Sennosides/Docusate Sodium 1 - 2 tab PO BID tab 07/18/17 [Senokot-S] Cephalexin [Keflex (*)] 500 mg PO Q6H #28 cap 03/01/18 Medical Decision Making ED Course/Re-evaluation: Urinalysis is consistent with UTI culture. Will start him on Keflex. I have discussed with Dr. Maria, his primary care physician. She will follow up on the urine culture results. I believe that his worsening of Parkinson's symptoms secondary return to his urinary tract infection rather than the change in medications. He is on this arm dosing on the same schedule. The only difference is that they are not the rapidly oral lead dissolving tablets. He will return for any concerns, otherwise Dr. Maria will follow-up at his snf facility. - Data Points Laboratory Results: Laboratory Results 03/01/18 20:57 03/01/18 20:57 03/01/18 03/01/18 03/01/18 22:30 20:57 20:57 WBC 4.78 10^3/uL 10^3/uL (3.80-9.50) RBC 4.06 10^6/uL L 10^6/uL (4.40-6.38) Hgb 12.0 g/dL L g/dL (13.7-17.5) Hct 37.1 % L % (40.0-51.0) MCV 91.4 fL fL (81.5-99.8) MCH 29.6 pg pg (27.9-34.1) MCHC 32.3 g/dL L g/dL (32.4-36.7) RDW 14.1 % % (11.5-15.2) Plt Count 156 10^3/uL 10^3/uL (150-400) MPV 11.1 fL fL (8.7-11.7) Neut % (Auto) 66.1 % % (39.3-74.2) Lymph % (Auto) 22.6 % % (15.0-45.0) [place] % (Auto) 8.4 % % (4.5-13.0) Eos % (Auto) 2.1 % % (0.6-7.6) Baso % (Auto) 0.6 % % (0.3-1.7) Nucleat RBC Rel Count 0.0 % % (0.0-0.2) Absolute Neuts (auto) 3.16 10^3/uL 10^3/uL (1.70-6.50) Absolute Lymphs (auto) 1.08 10^3/uL 10^3/uL (1.00-3.00) Absolute Monos (auto) 0.40 10^3/uL 10^3/uL (0.30-0.80) Absolute Eos (auto) 0.10 10^3/uL 10^3/uL (0.03-0.40) Absolute Basos (auto) 0.03 10^3/uL 10^3/uL (0.02-0.10) Absolute Nucleated RBC 0.00 10^3/uL 10^3/uL (0-0.01) Immature Gran % 0.2 % % (0.0-1.1) Immature Gran # 0.01 10^3/uL 10^3/uL (0.00-0.10) Sodium 137 mEq/L mEq/L (135-145) Potassium 4.4 mEq/L mEq/L (3.3-5.0) Chloride 101 mEq/L mEq/L (97-110) Carbon Dioxide 27 mEq/l mEq/l (22-31) Anion Gap 9 mEq/L mEq/L (8-16) BUN 19 mg/dL mg/dL (7-23) Creatinine 0.9 mg/dL mg/dL (0.7-1.3) Estimated GFR > 60 Glucose 94 mg/dL mg/dL (70-100) Calcium 9.2 mg/dL mg/dL (8.5-10.4) Urine Color YELLOW Urine Appearance CLEAR Urine pH 7.0 (5.0-7.5) Ur Specific [place] 1.003 (1.002-1.030) Urine Protein NEGATIVE (NEGATIVE) Urine Ketones NEGATIVE (NEGATIVE) Urine Blood 1+ H (NEGATIVE) Urine Nitrate NEGATIVE (NEGATIVE) Urine Bilirubin NEGATIVE (NEGATIVE) Urine Urobilinogen NEGATIVE EU EU (0.2-1.0) Ur Leukocyte Esterase 2+ H (NEGATIVE) Urine RBC 3-5 /hpf H /hpf (0-3) Urine WBC 15-25 /hpf H /hpf (0-3) Ur Epithelial Cells TRACE /lpf /lpf (NONE-1+) Urine Bacteria TRACE /hpf H /hpf (NONE SEEN) Urine Mucus TRACE /lpf /lpf (NONE-1+) Urine Glucose NEGATIVE (NEGATIVE) Medications Given: Discontinued Medications Cephalexin (Keflex 500 Mg Prepack#4) 1 btl TAKEHOME EDNOW ONE PRN Reason: Protocol Stop: 03/01/18 23:20 Last Admin: 03/01/18 23:19 Dose: 1 btl Cephalexin HCl (Keflex) 500 mg PO EDNOW ONE PRN Reason: Protocol Stop: 03/01/18 22:59 Last Admin: 03/01/18 23:10 Dose: 500 mg Departure - Departure Disposition: Home, Routine, Self-Care Clinical Impression: Urinary tract infection Condition: Good Instructions: Cephalexin (By mouth), Urinary Tract Infection in Men (ED) Additional Instructions: Follow up with primary care physician in 1-2 days for further evaluation. Return to the emergency department for increasing confusion, abdominal pain, uncontrolled nausea vomiting, fevers, or any other concerns. Referrals: Luli Vogel MD [Primary Care Provider] - As per Instructions Prescriptions: Cephalexin [Keflex (*)] 500 mg PO Q6H #28 cap
[2018-03-01] MEDS ORDERED: CEPHALEXIN 500MG PREPACK#4 BTL TAKEHOME ONE ×2 (23:18→23:19)
[2018-03-02 00:16] VITALS: BP 136/72
== END 2018-03-01 23:30 | disposition home or self-care (01) ==
LOC: EDUNIT#
DX: N39.0 Urinary tract infection, site not specified (principal); R41.0 Disorientation, unspecified; G20 Parkinson's disease; Z66 Do not resuscitate

== ENCOUNTER → 2018-04-06 | Outpatient (CLI) | payer MEDICAID, OTHER | LOC: FIMAGING 14:20 | PROVIDERS: ATTEND Nurse Practitioner Family | DX: M25.552 Pain in left hip (principal); Z96.642 Presence of left artificial hip joint; M16.11 Unilateral primary osteoarthritis, right hip ==